=== PATIENT | female | born 1960 | race Caucasian/White ===

== ENCOUNTER 2020-07-26 23:54 | Emergency (ER) | payer OTHER, SELFPAY ==
[2020-07-26 23:59] VITALS: BP 161/108; PULSE 98; RESP 20; TEMP 37; O2SAT 95; BMI 24.0
[2020-07-27 00:55] VITALS: BP 123/92; PULSE 89; RESP 18; O2SAT 99
--- NOTE | 2020-07-27 01:10 | ED.GENADULT ---
HPI - General Adult General Chief complaint: General Medical Stated complaint: vomiting Time Seen by Provider: 07/27/20 01:02 Source: patient Mode of arrival: ambulatory Limitations: no limitations History of Present Illness HPI narrative: patient comes to emergency room complaining of vomiting and a foreign body sensation in her throat. Patient states she was doing well this morning, she ate a sausage, patient does not have teeth, swallow a big chunk of sausage and since then she has been complaining of vomiting and a foreign body sensation in her throat. Patient states anything that she drinks she vomits. Patient also complaining of shortness of breath, albuterol isn't helping. Patient states she has been diagnosed with asthma in the past, she is a smoker but unknown if she has COPD. MD complaint: Foreign body sensation in throat, vomiting Related Data Allergies Allergy/AdvReac Type Severity Reaction Status Date / Time No Known Allergies Allergy Mild NKA Verified 07/27/20 00:44 Review of Systems Review of Systems: Constitutional : No Weight loss, No Fever, No Chills, No Night Sweats, No Fatigue, No Malaise ENT/Mouth : No Hearing loss, No Ear Pain, No Nasal Congestion, No Sinus Pain, No Hoarseness, No sore throat, No Rhinorrhea, No Swallowing Difficulty Eyes: No Eye Pain, No Swelling, No Redness, No Foreign Body, No Discharge, No Vision Changes Cardiovascular : No Chest Pain, No SOB, No Dyspnea on Exertion, No Orthopnea, No Edema, No Palpitations Respiratory : chronic cough, wheezing and shortness of breath Gastrointestinal : complaining of nausea and vomiting, no diarrhea, no abdominal pain, complaining of foreign body sensation in her esophagus Genitourinary : no irregular bleeding, No Dysuria, No Urinary Frequency, No Hematuria, No Urinary Incontinence, No Urgency, No Flank Pain, No Urinary Flow Changes, No Hesitancy Musculoskeletal : No joint pain, No Myalgias, No Joint Swelling Skin : No Skin Lesions, No rash Neuro : No Weakness, No Numbness, No Paresthesias, No Loss of Consciousness, No Dizziness, No Headache Psych : No Anxiety/Panic, No Depression, No SI/HI/AH/VH, No Social Issues, Heme/Lymph: No Bruising, No Bleeding,No Lymphadenopathy Endocrine : No Polyuria, No Polydipsia, No Temperature Intolerance [facility] Past Medical History Medical History (Updated 07/27/20 @ 05:31 by Lexus Mckenzie MD) Asthma HIV (human immunodeficiency virus infection) Social History Social History Alcohol intake: never Smoking Status: Never smoker Smoked in Last 30 Days: No Substance Use Type: Marijuana Substance Use Frequency: Daily Last Used Substance: Hours (ago) Advance Directives: No Physical Exam Vital Signs: Vital Signs: Last Vital Signs Temp 98.6 F 07/26/20 23:59 Pulse 90 07/27/20 01:54 Resp 18 07/27/20 04:00 BP 152/88 H 07/27/20 01:54 Pulse Ox 93 07/27/20 01:42 Body Mass Index 24.0 Appearance: Alert. Oriented X3. in mild distress, crying Eyes: Pupils equal, round and reactive to light. ENT: Pharynx normal. Neck: Normal inspection. Neck supple. No lymph nodes noted. No crepitus CVS: Normal heart rate and rhythm. Pulses normal. Normal S1 and S2 Respiratory: bilateral wheezing, good air movement Abdomen: Soft and nontender. actively vomiting. Skin: Skin warm and dry. Normal skin color. Normal skin turgor. Extremities: No lower extremity edema. No lower extremity edema. No Lacerations. No Rash Neuro: Oriented X 3. No motor deficit. No sensory deficit. Moving all extermities. No slurred speech. Course Course Course Narrative: Patient was given IM glucagon and nitroglycerin sublingual, patient still continued having nausea vomiting and unable to tolerate p.o.. Patient was given 1 dose of Gas-X patient was able to tolerate p.o. both liquid and solid without any vomiting. Patient states she does no longer have any esophageal pain or foreign body sensation. Medical Decision Making Lab Data Result diagrams: 07/27/20 01:41 07/27/20 01:41 Labs: Lab Results 07/27/20 07/27/20 Range/Units 01:41 01:41 WBC 11.7 H (4.8-10.8) X10*3/uL RBC 4.93 (4.20-5.50) X10*6/uL Hgb 14.6 (12.0-16.0) g/dl Hct 44.6 (37-47) % MCV 90.5 (80-98) fL MCH 29.6 (27.0-33.0) pg MCHC 32.7 (31.0-35.0) g/dl RDW 14.0 (11.0-16.0) % Plt Count 310 (160-400) X10*3/uL MPV 11.3 (9.4-12.3) fL Immature Gran % (Auto) 0.3 (0.0-0.4) % Neut % (Auto) 68.2 (45-73) % Lymph % (Auto) 22.0 (20-40) % [place] % (Auto) 9.0 (2-11) % Eos % (Auto) 0.1 (0-4) % Baso % (Auto) 0.4 (0-2) % Lymph # (Auto) 2.6 (1.2-4.9) X10*3/uL [place] # (Auto) 1.1 (0.1-1.2) X10*3/uL Eos # (Auto) 0.0 (0.0-0.4) X10*3/uL Baso # (Auto) 0.1 (0.0-0.2) X10*3/uL Abs Immat Gran (auto) 0.03 (0.00-0.03) X10*3/uL Absolute Neuts (auto) 8.0 (2.0-8.3) X10*3/uL Absolute Nucleated RBC 0.000 (0.0-0.012) X10*3/uL Nucleated RBC % (auto) 0.0 (0.0-0.2) /100WBC Sodium 146 H (135-145) mmol/L Potassium 3.8 (3.3-5.1) mmol/l Chloride 108 (96-108) mmol/L Carbon Dioxide 23 (22-29) mmol/L Anion Gap 19 (12-20) BUN 21 H (9-16) mg/dL Creatinine 1.17 (0.5-1.4) mg/dL Estim Creat Clear Calc 45.2 Estimated GFR 48 Random Glucose 119 H (60-115) mg/dL Calcium 10.3 H (8.4-10.2) mg/dL Total Bilirubin 0.4 (0.0-1.0) mg/dL Direct Bilirubin 0.2 (0.0-0.5) mg/dL AST 25 (5-31) U/L ALT 18 (0-31) U/L Alkaline Phosphatase 105 (39-117) U/L Total Protein 9.5 H (6.5-8.0) g/dL Albumin 5.2 H (3.5-5.0) g/dL Lipase 7 L (8-78) U/L Discharge Plan Discharge Clinical Impression: Esophageal foreign body Qualifiers: Encounter type: initial encounter Qualified Code(s): T18.108A - Unspecified foreign body in esophagus causing other injury, initial encounter Patient Disposition: Home, Self-Care Instructions: Foreign Body Ingestion (ED) Additional Instructions: Please follow-up with your primary care physician tomorrow. If you have any worsening or new symptoms, please return to the emergency room or call 911
[2020-07-27] MEDS: Albuterol Sulfate (0.083%) 2.5 MG/3 ML VIAL.NEB 5 MG INHALE (01:30)
[2020-07-27 01:42] VITALS: BP 152/88; PULSE 90; RESP 18; O2SAT 93
[2020-07-27] MEDS: 0.9 % Sodium Chloride 1,000 ML 999 ML IVCONT (01:44)
[2020-07-27 01:51] LABS: Basophils Absolute Auto 0.1 X10*3/uL (0.0-0.2); Basophils Percent Auto 0.4 % (0-2); Eosinophils Percent Auto 0.1 % (0-4); Hematocrit 44.6 % (37-47); Hemoglobin 14.6 g/dl (12.0-16.0); Imm Gran Abs Auto 0.03 X10*3/uL (0.00-0.03); Imm Gran Pct Auto 0.3 % (0.0-0.4); Lymphocytes Absolute Auto 2.6 X10*3/uL (1.2-4.9); MANUAL DIFF FLAG NO; Mean Corpuscular HGB Conc 32.7 g/dl (31.0-35.0); Mean Corpuscular Hemoglobin 29.6 pg (27.0-33.0); Mean Corpuscular Volume 90.5 fL (80-98); Mean Platelet Volume 11.3 fL (9.4-12.3); Monocytes Absolute Auto 1.1 X10*3/uL (0.1-1.2); Neutrophils Percent Auto 68.2 % (45-73); Platelet Count 310 X10*3/uL (160-400); Red Blood Count 4.93 X10*6/uL (4.20-5.50); White Blood Count 11.7 X10*3/uL (4.8-10.8)
[2020-07-27 01:54] VITALS: BP 152/88; PULSE 90
[2020-07-27] MEDS: Nitroglycerin 0.4 MG TAB.SUBL SUBLINGUAL (01:54)
[2020-07-27] MEDS: methylPREDNISolone Sod Succ/PF 125 MG/2 ML VIAL IVPUSH (01:54)
[2020-07-27] MEDS: ondansetron HCL 4 MG/2 ML VIAL IVPUSH (01:54)
--- NOTE | 2020-07-27 02:16 | CT_ITS ---
EXAMINATION: CT CHEST WITHOUT CONTRAST CLINICAL INFORMATION: Concern for foreign body within the esophagus. COMPARISON: 09/15/2019. TECHNIQUE: Contiguous axial thin section helical images of the chest were performed without contrast. The data set was reformatted in the coronal and sagittal planes and reviewed on an independent workstation. DLP: 184 mGy-cm. FINDINGS: The heart is of normal size. There is no pericardial effusion. There is neither mediastinal, hilar nor axillary lymphadenopathy. There are no chest wall masses. Review of lung windows demonstrates that there are neither pleural effusions nor pneumothoraces. There are no consolidations. There are no pulmonary parenchymal nodules. Images of the upper abdomen demonstrate that the liver is of normal size and attenuation without focal lesions. The patient is status post cholecystectomy. Surgical clips are identified. There are a few calculi within the common duct. Normal adrenal glands are identified. There is a small hiatal hernia. Bone windows: Neither sclerotic nor lytic bone lesions are identified. CT/CT chest wo con IMPRESSION: No foreign bodies demonstrable. No acute airspace disease. Status post cholecystectomy. Residual calcifications noted within the common duct. Automated exposure control (Care Dose) Adjustment of the mA and/or kv according to patient size (this includes techniques or standardized protocols for targeted exams where dose is matched to indication / reason for exam; i.e. extremities or head).
[2020-07-27] MEDS: LORazepam 2 MG/ML VIAL 1 MG IVPUSH (02:25)
[2020-07-27 02:27] LABS: Alanine Aminotransferase 18 U/L (0-31); Albumin Level 5.2 g/dL (3.5-5.0); Alkaline Phosphatase 105 U/L (39-117); Anion Gap 19 (12-20); Aspartate Amino Transferase 25 U/L (5-31); Bilirubin Direct 0.2 mg/dL (0.0-0.5); Bilirubin Total 0.4 mg/dL (0.0-1.0); Blood Urea Nitrogen 21 mg/dL (9-16); Calcium 10.3 mg/dL (8.4-10.2); Carbon Dioxide 23 mmol/L (22-29); Chloride 108 mmol/L (96-108); Creatinine Clr Calc Pharmacy 45.2; Estimated Glomerular Filt Rate 48; Glucose Random 119 mg/dL (60-115); Lipase 7 U/L (8-78); Potassium 3.8 mmol/l (3.3-5.1); Sodium 146 mmol/L (135-145); Total Protein 9.5 g/dL (6.5-8.0)
[2020-07-27 04:00] VITALS: RESP 18
--- NOTE | 2020-07-27 05:02 | PC.NURSE ---
PO CHALLENGE STARTED.
[2020-07-27 05:34] VITALS: BP 125/75; PULSE 79; RESP 18; TEMP 36.9; O2SAT 94
== END 2020-07-27 05:35 | disposition home or self-care (01) ==
PROVIDERS: Emergency Provider Emergency Medicine
DX: R13.10 Dysphagia, unspecified (principal); R09.89 Other specified symptoms and signs involving the circulatory and respiratory systems; F12.90 Cannabis use, unspecified, uncomplicated
CPT/HCPCS: 36415; 71250; 80048; 80076; 83690; 85025; 94640; 96361; 96372; 96374; 96375; 99284; J1610; J2060; J2405; J2930

== ENCOUNTER 2020-07-28 12:38 | Inpatient (IN) | payer OTHER, SELFPAY ==
[2020-07-28] VITALS (7 sets, daily range): BP systolic 97–117; BP diastolic 55–73; PULSE 77–116; RESP 16–22; TEMP 36.1–36.9; O2SAT 94–100; BMI 24.0
--- NOTE | 2020-07-28 12:58 | XR_ITS ---
EXAMINATION: XR CHEST CLINICAL INFORMATION: Dyspnea COMPARISON: Chest CT July 2020 chest x-ray August 2019. TECHNIQUE: Frontal view of the chest was obtained. FINDINGS: No acute significant abnormality is noted involving the heart, lungs, mediastinum, bony thorax or soft tissues. Incidental note is made of arthrosis of glenohumeral joint with subchondral cystic change along the inferior glenoid XR/XR chest 1V IMPRESSION: No acute abnormality. 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
--- NOTE | 2020-07-28 13:00 | ED_ITS ---
HPI - Asthma General Chief Complaint: Upper Respiratory Symptoms Stated Complaint: SOB,RECENT -COVID,HX OF ASTHMA Time Seen by Provider: 07/28/20 12:57 Source: EMS Mode of arrival: EMS Limitations: no limitations History of Present Illness MD complaint: asthma attack , shortness of breath and wheezing Onset (ago): day(s) (1) Severity: moderate Context: smoke exposure and other (did use cocaine) Associated symptoms: dry cough Asthma History: childhood onset and adult onset Treatments Prior to Arrival: inhaled bronchodilator and other Related Data Allergies Allergy/AdvReac Type Severity Reaction Status Date / Time No Known Allergies Allergy Mild NKA Verified 07/27/20 00:44 Review of Systems Review of Systems: Constitutional : No Fever, No Chills ENT/Mouth : No sore throat, No Rhinorrhea, No Swallowing Difficulty Eyes: No Eye Pain, No Swelling, No Redness Cardiovascular : No Chest Pain, positive SOB, No Orthopnea, no Edema Respiratory : pos Cough, No Sputum, No Wheezing, positive dyspnea Gastrointestinal : No Nausea, No Vomiting, No Diarrhea, No abdominal Pain, No Hematochezia, No Melena Genitourinary : No Dysuria, No Urinary Frequency, No Hematuria Musculoskeletal : No joint pain, No Myalgias Skin : No Skin Lesions, No rash Neuro : No Weakness, No Numbness, No Dizziness, No Headache Psych : No Anxiety/Panic, No Depression Heme/Lymph: No Bruising, No Lymphadenopathy Endocrine : No Polyuria, No Polydipsia All other systems reviewed and are negative PMFSH Past Medical History Attestation statement: The following information was validated with the patient. Medical History Asthma HIV (human immunodeficiency virus infection) Social History Social History Alcohol intake: never Smoking Status: Never smoker Substance Use Type: Crack/Cocaine and Marijuana Last Used Substance: Days (ago) Advance Directives: No Advance Directives Information Provided: Yes Physical Exam Vital Signs: Vital Signs: Last Vital Signs Temp 98.5 F 07/28/20 12:42 Pulse 77 07/28/20 12:42 Resp 19 07/28/20 12:42 Pulse Ox 97 07/28/20 13:12 Body Mass Index 24.0 Appearance: Alert. Oriented X3. mild acute distress. Eyes: Pupils equal, round and reactive to light. ENT: Pharynx normal. Neck: Normal inspection. Neck supple. CVS: Normal heart rate and rhythm. Pulses normal. Respiratory: mild respiratory distress - tachypnea/retractions. Breath sounds diffuse end exp wheezes Abdomen: Soft and nontender. Skin: Skin warm and dry. Normal skin color. Normal skin turgor. Extremities: No lower extremity edema. No calf ttp Neuro: Oriented X 3. No motor deficit. No sensory deficit. Course Course Course Narrative: still tight and wheezing, repeat neb ordered at this time will admit for further care MDM - Asthma MDM Narrative Medical decision making narrative: 60 yo female with asthma does smoke THC and just used cocaine here for asthma and wheezing - no fevers, just had negative COVID test seen for esophageal FB - that has resolved at this time will give hour long 10mg neb, IV magnesium, IV steroids, labs and CXR - dispo per results and findings. Lab Data Result diagrams: 07/28/20 13:03 07/28/20 13:03 Labs: Lab Results 07/28/20 07/28/20 07/28/20 Range/Units 13:03 13:03 13:03 WBC 7.9 (4.8-10.8) X10*3/uL RBC 4.16 L (4.20-5.50) X10*6/uL Hgb 12.1 (12.0-16.0) g/dl Hct 37.6 (37-47) % MCV 90.4 (80-98) fL MCH 29.1 (27.0-33.0) pg MCHC 32.2 (31.0-35.0) g/dl RDW 14.0 (11.0-16.0) % Plt Count 234 (160-400) X10*3/uL MPV 11.2 (9.4-12.3) fL Immature Gran % (Auto) 0.1 (0.0-0.4) % Neut % (Auto) 50.4 (45-73) % Lymph % (Auto) 40.8 H (20-40) % [place] % (Auto) 8.0 (2-11) % Eos % (Auto) 0.3 (0-4) % Baso % (Auto) 0.4 (0-2) % Lymph # (Auto) 3.2 (1.2-4.9) X10*3/uL [place] # (Auto) 0.6 (0.1-1.2) X10*3/uL Eos # (Auto) 0.0 (0.0-0.4) X10*3/uL Baso # (Auto) 0.0 (0.0-0.2) X10*3/uL Abs Immat Gran (auto) 0.01 (0.00-0.03) X10*3/uL Absolute Neuts (auto) 4.0 (2.0-8.3) X10*3/uL Absolute Nucleated RBC 0.000 (0.0-0.012) X10*3/uL Nucleated RBC % (auto) 0.0 (0.0-0.2) /100WBC Hold Blue Top SEE NOTE Sodium 144 (135-145) mmol/L Potassium 3.2 L (3.3-5.1) mmol/l Chloride 107 (96-108) mmol/L Carbon Dioxide 28 (22-29) mmol/L Anion Gap 12 (12-20) BUN 16 (9-16) mg/dL Creatinine 0.88 (0.5-1.4) mg/dL Estim Creat Clear Calc 60.1 Estimated GFR > 60 Random Glucose 99 (60-115) mg/dL Calcium 9.2 D (8.4-10.2) mg/dL Discharge Plan Discharge Clinical Impression: Asthma, Cocaine abuse Patient Disposition: Admitted As Inpatient
[2020-07-28] MEDS: methylPREDNISolone Sod Succ/PF 125 MG/2 ML VIAL 60 MG IVPUSH (13:05)
[2020-07-28] MEDS: Magnesium Sulfate/H2O 2 GM/50 ML PIGGYBACK IV (13:05)
[2020-07-28] MEDS: Albuterol Sulfate (0.083%) 2.5 MG/3 ML VIAL.NEB 10 MG INHALE (13:08)
[2020-07-28 13:13] LABS: MANUAL DIFF FLAG NO
[2020-07-28 13:19] LABS: Basophils Percent Auto 0.4 % (0-2); Eosinophils Percent Auto 0.3 % (0-4); Hematocrit 37.6 % (37-47); Hemoglobin 12.1 g/dl (12.0-16.0); Imm Gran Abs Auto 0.01 X10*3/uL (0.00-0.03); Imm Gran Pct Auto 0.1 % (0.0-0.4); Lymphocytes Absolute Auto 3.2 X10*3/uL (1.2-4.9); Lymphocytes Percent Auto 40.8 % (20-40); Mean Corpuscular HGB Conc 32.2 g/dl (31.0-35.0); Mean Corpuscular Hemoglobin 29.1 pg (27.0-33.0); Mean Corpuscular Volume 90.4 fL (80-98); Mean Platelet Volume 11.2 fL (9.4-12.3); Monocytes Absolute Auto 0.6 X10*3/uL (0.1-1.2); Neutrophils Percent Auto 50.4 % (45-73); Platelet Count 234 X10*3/uL (160-400); Red Blood Count 4.16 X10*6/uL (4.20-5.50); White Blood Count 7.9 X10*3/uL (4.8-10.8)
[2020-07-28 13:32] LABS: Anion Gap 12 (12-20); Blood Urea Nitrogen 16 mg/dL (9-16); Calcium 9.2 mg/dL (8.4-10.2); Carbon Dioxide 28 mmol/L (22-29); Chloride 107 mmol/L (96-108); Creatinine Clr Calc Pharmacy 60.1; Estimated Glomerular Filt Rate > 60; Glucose Random 99 mg/dL (60-115); Potassium 3.2 mmol/l (3.3-5.1); Sodium 144 mmol/L (135-145)
[2020-07-28] MEDS: Potassium Chloride ER 20 MEQ TAB.ER.PRT 40 MEQ PO (14:15)
[2020-07-28] MEDS: Albuterol Sulfate (0.083%) 2.5 MG/3 ML VIAL.NEB 5 MG INHALE (15:07)
[2020-07-28 15:27] LABS: Influenza A PCR NEGATIVE (Negative); Influenza B PCR NEGATIVE (Negative); Resp Syncy Virus RNA Qual PCR NEGATIVE (Negative); SARS COV2 PCR INHOUSE NEGATIVE (Negative)
--- NOTE | 2020-07-28 16:38 | PC.NURSE ---
VSS. Pt's lungs coarse throughout but she appears in NAD. She is resting in bed quietly with eyes closed. Awaiting bed assignment for admission.
--- NOTE | 2020-07-28 17:00 | PM.EVENT ---
Event Note Date of Service: 07/28/20 Event Note: Addendum to H and P by Mid-level Provider I saw and examined the patient and participated in the chi portion of the E/M service. I agree with the history and exam as documented by [employer] SAL[employer] EXECUTIVE. Patient has acute exacerbation of asthma. Exam: delfina wheezes. Will admit for treatment with bronchodilators by Nebs, IV steroidand close monitoring. Covid is negative. . Otherwise, I agree with assessment and plan as outlined in the H and P.
--- NOTE | 2020-07-28 18:47 | PC.NURSE ---
Pt remains coarse and wheezy but breathing is unlabored and even. Sats 98% on room air. Eating dinner. Awaiting bed assignment. Plan verbalized tp patient.
[2020-07-28] MEDS: Benzonatate 100 MG CAPSULE PO (19:44)
[2020-07-28] MEDS: Albuterol/Iprat 2.5/0.5MG 3 ML AMPUL.NEB INHALE (21:51)
[2020-07-28] MEDS: 0.9 % Sodium Chloride Flush 3 ML SYRINGE IVFLUSH ×2 (21:59→22:00)
[2020-07-28] MEDS: Enoxaparin Sodium 40 MG/0.4 ML SYRINGE SUBCUT (21:59)
[2020-07-28] MEDS: guaiFENesin DM 100/10/5 ML 5 ML SYRUP PO (22:23)
[2020-07-28] MEDS: Mirtazapine 15 MG TABLET PO (22:43)
[2020-07-28] MEDS: traZODone HCL 50 MG TABLET PO (22:43)
[2020-07-29 03:40] VITALS: BP 138/68; PULSE 70; RESP 19; TEMP 36.4; O2SAT 96
[2020-07-29] MEDS: guaiFENesin DM 100/10/5 ML 5 ML SYRUP PO (05:41)
[2020-07-29 06:54] LABS: MANUAL DIFF FLAG NO
[2020-07-29 07:01] LABS: Basophils Percent Auto 0.1 % (0-2); Hematocrit 37.7 % (37-47); Imm Gran Abs Auto 0.04 X10*3/uL (0.00-0.03); Imm Gran Pct Auto 0.4 % (0.0-0.4); Lymphocytes Percent Auto 10.9 % (20-40); Mean Corpuscular HGB Conc 31.8 g/dl (31.0-35.0); Mean Corpuscular Hemoglobin 29.1 pg (27.0-33.0); Mean Corpuscular Volume 91.3 fL (80-98); Mean Platelet Volume 11.3 fL (9.4-12.3); Monocytes Absolute Auto 0.4 X10*3/uL (0.1-1.2); Monocytes Percent Auto 4.3 % (2-11); Neutrophils Absolute Auto 7.6 X10*3/uL (2.0-8.3); Neutrophils Percent Auto 84.3 % (45-73); Platelet Count 249 X10*3/uL (160-400); Red Blood Count 4.13 X10*6/uL (4.20-5.50); Red Cell Distribution Width 14.2 % (11.0-16.0)
[2020-07-29 07:19] VITALS: BP 112/70; PULSE 71; RESP 16; TEMP 36.1; O2SAT 96
[2020-07-29 07:32] LABS: Anion Gap 15 (12-20); Blood Urea Nitrogen 14 mg/dL (9-16); Calcium 9.1 mg/dL (8.4-10.2); Carbon Dioxide 22 mmol/L (22-29); Chloride 109 mmol/L (96-108); Creatinine Clr Calc Pharmacy 64.5; Estimated Glomerular Filt Rate > 60; Glucose Random 148 mg/dL (60-115); Sodium 142 mmol/L (135-145)
[2020-07-29] MEDS: Albuterol/Iprat 2.5/0.5MG 3 ML AMPUL.NEB INHALE ×2 (07:51→11:49)
--- NOTE | 2020-07-29 09:02 | PM.DS ---
DS: Providers Provider Date of admission: 07/28/20 15:21 Primary care physician: Unknown Physician DS: Medications Discharge Medications Home Medications: Home Medications Medication Instructions Recorded Confirmed [id number] ala 1 tab PO DAILY 07/28/20 07/28/20 [Biktarvy] ergocalciferol (vitamin D2) 1,250 mcg PO QWEEK 07/28/20 07/28/20 [Vitamin D2] mirtazapine 15 mg PO BEDTIME 07/28/20 07/28/20 sertraline 150 mg PO DAILY 07/28/20 07/28/20 trazodone 50 mg PO BEDTIME 07/28/20 07/28/20 DS: Summary Hospital Course Hospital Course: 60/F with asthma and HIV, active cocaine user who presented to the ED with shortness of breath, wheezing in the setting of cocain use. CXR no PNA. covid negative. Patient was admitted for asthma exacerbation and treated with IV steroid, bronchodilators by Neb and is now doing better. Advised against using coaine and smoking. Will discharge with Albuterol MDI and prednisone for 5 days of steroid. Prilosec for heart burn. And to continue HIV meds Time Spent with Patient Time attestation: Total time spent providing and/or coordinating discharge services: Physical Exam Vital Signs: Vital Signs: Last Vital Signs Temp 97.0 F 07/29/20 07:19 Pulse 71 07/29/20 07:19 Resp 16 07/29/20 07:19 BP 112/70 07/29/20 07:19 Pulse Ox 96 07/29/20 07:19 Body Mass Index 24.0 Constitutional Awake and Alert, No apparent distress Neck Supple, No lymphadenopathy Cardiovascular RRR, No M/R/G, S1 S2, No S3 S4, No pedal edema Respiratory Lungs clear, No respiratory distress Gastrointestinal Non tender, Non-distended Skin No rash Neurological Alert & oriented x3 Psychological Appropriate affect DS: Data Data Completed and Pending Labs on day of discharge: 07/28/20 12:57 Albuterol Sulfate (0.083%) [Ventolin (0.083%)] 10 mg INHALE ONCE ONE Magnesium Sulfate/H2O 2 gm in 50 ml IV ONCE methylPREDNISolone Sod Succ/PF [SOLU-MedroL] 60 mg IVPUSH ONCE ONE 07/28/20 12:58 XR chest 1V Stat 07/28/20 13:03 Basic Metabolic Panel Stat Complete Blood Count Auto Diff Stat Hold Lt Blue - Possible Coag Stat 07/28/20 13:46 Potassium Chloride ER [Klor-con] 40 meq PO ONCE ONE 07/28/20 14:33 Albuterol Sulfate (0.083%) [Ventolin (0.083%)] 5 mg INHALE ONCE ONE 07/28/20 14:40 SARS-CoV2/FLU/RSV Stat 07/28/20 15:17 Transfer Order Routine 07/28/20 19:29 Benzonatate [Tessalon] 100 mg PO ONCE ONE 07/29/20 06:30 Basic Metabolic Panel DAILY@0600 Complete Blood Count Auto Diff DAILY@0600 Laboratory Last Values WBC 9.0 X10*3/uL (4.8-10.8) 07/29/20 06:30 RBC 4.13 X10*6/uL (4.20-5.50) L 07/29/20 06:30 Hgb 12.0 g/dl (12.0-16.0) 07/29/20 06:30 Hct 37.7 % (37-47) 07/29/20 06:30 MCV 91.3 fL (80-98) 07/29/20 06:30 MCH 29.1 pg (27.0-33.0) 07/29/20 06:30 MCHC 31.8 g/dl (31.0-35.0) 07/29/20 06:30 RDW 14.2 % (11.0-16.0) 07/29/20 06:30 Plt Count 249 X10*3/uL (160-400) 07/29/20 06:30 MPV 11.3 fL (9.4-12.3) 07/29/20 06:30 Immature Gran % (Auto) 0.4 % (0.0-0.4) 07/29/20 06:30 Neut % (Auto) 84.3 % (45-73) H 07/29/20 06:30 Lymph % (Auto) 10.9 % (20-40) L 07/29/20 06:30 [place] % (Auto) 4.3 % (2-11) 07/29/20 06:30 Eos % (Auto) 0.0 % (0-4) 07/29/20 06:30 Baso % (Auto) 0.1 % (0-2) 07/29/20 06:30 Lymph # (Auto) 1.0 X10*3/uL (1.2-4.9) L 07/29/20 06:30 [place] # (Auto) 0.4 X10*3/uL (0.1-1.2) 07/29/20 06:30 Eos # (Auto) 0.0 X10*3/uL (0.0-0.4) 07/29/20 06:30 Baso # (Auto) 0.0 X10*3/uL (0.0-0.2) 07/29/20 06:30 Abs Immat Gran (auto) 0.04 X10*3/uL (0.00-0.03) H 07/29/20 06:30 Absolute Neuts (auto) 7.6 X10*3/uL (2.0-8.3) 07/29/20 06:30 Absolute Nucleated RBC 0.000 X10*3/uL (0.0-0.012) 07/29/20 06:30 Nucleated RBC % (auto) 0.0 /100WBC (0.0-0.2) 07/29/20 06:30 Hold Blue Top SEE NOTE 07/28/20 13:03 Sodium 142 mmol/L (135-145) 07/29/20 06:30 Potassium 4.0 mmol/l (3.3-5.1) D 07/29/20 06:30 Chloride 109 mmol/L (96-108) H 07/29/20 06:30 Carbon Dioxide 22 mmol/L (22-29) 07/29/20 06:30 Anion Gap 15 (12-20) 07/29/20 06:30 BUN 14 mg/dL (9-16) 07/29/20 06:30 Creatinine 0.82 mg/dL (0.5-1.4) 07/29/20 06:30 Estim Creat Clear Calc 64.5 07/29/20 06:30 Estimated GFR > 60 07/29/20 06:30 Random Glucose 148 mg/dL (60-115) H D 07/29/20 06:30 Calcium 9.1 mg/dL (8.4-10.2) 07/29/20 06:30 Coronavirus (PCR) NEGATIVE (Negative) 07/28/20 14:40 Influenza Type A (PCR) NEGATIVE (Negative) 07/28/20 14:40 Influenza Type B (PCR) NEGATIVE (Negative) 07/28/20 14:40 RSV RNA Qual (PCR) NEGATIVE (Negative) 07/28/20 14:40 Discharge Plan Discharge Anticipated Discharge Date/Time: 07/29/20 09:08 Patient Disposition: Home, Self-Care Referrals: Physician,Unknown [Primary Care Provider] - Discharge Medications: New prednisone 20 mg tablet 40 mg PO BID 5 Days Qty: 20 RF: 0 albuterol sulfate 90 mcg/actuation HFA aerosol inhaler 2 inh inhalation Q6-8H PRN (Reason: shortness of breath or wheezing) Qty: 18 RF: 0 omeprazole magnesium [Prilosec OTC] 20 mg tablet,delayed release (DR/EC) 20 mg PO DAILY Qty: 30 RF: 0 Continued Biktarvy 50-200-25 mg Tablet 1 tab PO DAILY RF: 0 trazodone 50 mg Tablet 50 mg PO BEDTIME RF: 0 sertraline 100 mg Tablet 150 mg PO DAILY RF: 0 mirtazapine 15 mg Tablet 15 mg PO BEDTIME RF: 0 ergocalciferol (vitamin D2) [Vitamin D2] 1,250 mcg (50,000 unit) Capsule 1,250 mcg PO QWEEK RF: 0 Discharge Orders: Discharge Order (Routine); Ordered 07/29/20 Ordered By: Vic Tripathi Activity on Discharge: As tolerated Discharge Date/Time: 07/29/20 13:39 Visit Report Forms: Patient Portal Discharge page Care Plan Goals: prevent rehospitalization for asthma Health Concerns: ongoing substance abuse Plan of Treatment: take prednisone and inhaler as ordered
[2020-07-29] MEDS: 0.9 % Sodium Chloride Flush 3 ML SYRINGE IVFLUSH (09:31)
[2020-07-29] MEDS: Sertraline HCL 100 MG TABLET 150 MG PO (09:32)
[2020-07-29] MEDS: Omeprazole 20 MG CAPSULE.DR PO (09:36)
[2020-07-29] MEDS: Ergocalciferol (Vitamin D2) 1,250 MCG CAPSULE 1250 MCG PO (09:36)
--- NOTE | 2020-07-29 09:57 | MHC.CM.PN ---
nurse case management electronic medical record reviewed along with case discussed with staff nurse , met with patient she reported to me her new address [address] [place] [address] (this is a house in which she rents a room out of ) pharmacy [facility] , pcp hector menendez at [facility], she reported that she is active, independent in all adls and mobility, she reported that she has had hiv for about 26 years she denies any history of etoh abuse , she admitts to snort cocaine and smoke marijuana she has a nebulizer at home but does not rember the company name , she has no vna services and denies having financial difficulties in securing any of her medications. discharge plan home no services offered a cares team referral and she declined pcp instructed her to clal for post hospitla discharge for follow up she will be going home on on a inhaler . prilosec and po prednisome transf]=[facility] pm todaya review of the discharge plan with patient
--- NOTE | 2020-08-01 15:38 | HP_ITS ---
DATE OF SERVICE: 07/28/2020 CHIEF COMPLAINT: Shortness of breath. HISTORY OF PRESENT ILLNESS: A 60-year-old woman, presenting with complaints of worsening shortness of breath due to her asthma. She reports that she had been using her inhalers with no effect. Her symptoms started yesterday. She reports that she used cocaine yesterday and seems to have these asthma attacks when she uses. She denies any recent fever, chills, nausea, vomiting, or diarrhea. She reports a dry cough with some foamy sputum. She was recently in the ER on July 27 and had a foreign body in her esophagus removed. Chest x-ray in the ER is negative for consolidation or effusion. Her vital signs are stable. She is not noted to be hypoxic, however, she is quite wheezy. Potassium of 3.2. All other labs within acceptable limits. The patient will be admitted for further management and treatment of acute asthma exacerbation. PAST MEDICAL HISTORY: 1. Asthma. 2. Substance abuse. 3. HIV. 4. Anxiety. 5. Depression. FAMILY HISTORY: Mother with hypertension, hepatitis C. SOCIAL HISTORY: Lives alone. Uses cocaine. Denies tobacco or illicit drug use. ALLERGIES: NO KNOWN ALLERGIES. MEDICATIONS: Medication reconciliation is pending. LABORATORY DATA: Sodium 144, potassium 3.2, chloride is 107, BUN is 16, creatinine 0.88. White blood cell count 7.9, hemoglobin 12.1, hematocrit 37.6, platelets 234. REVIEW OF SYSTEMS: CONSTITUTIONAL: Denies any recent fever, chills, decrease in appetite. RESPIRATORY: See HPI. CARDIOVASCULAR: Denies any chest pain, orthopnea, PND, or edema. GASTROINTESTINAL: Denies any dysphagia, abdominal pain, nausea, vomiting, or diarrhea. GENITOURINARY: Denies any dysuria, frequency, hematuria. MUSCULOSKELETAL: Denies joint pain or swelling. NEUROPSYCH: Denies any weakness or seizures. All other systems are reviewed and are negative. PHYSICAL EXAMINATION: CONSTITUTIONAL: Resting in bed. No acute distress. VITAL SIGNS: 106, 16, 97/55, 99% on room air. SKIN: Intact without rash or open sores. HEENT: Head is normocephalic, atraumatic. Eyes, pupils are PERRLA. Sclerae anicteric. Mouth and throat: Mucous membranes are intact and moist. NECK: Supple. No lymphadenopathy. No JVD noted. CHEST: Expiratory wheezes throughout. HEART: Regular rate and rhythm. Clear S1, S2. No murmurs or gallops. ABDOMEN: Positive bowel sounds. Soft. Nontender. No hepatomegaly or splenomegaly noted. NEURO: The patient is alert and oriented x3. Cranial nerves II through 12 are grossly intact without focal deficits. ASSESSMENT AND PLAN: A 60-year-old woman, who is being admitted with acute asthma exacerbation without hypoxia. 1. Asthma exacerbation. Solu-Medrol, DuoNeb. Continue supplemental oxygen as needed. No antibiotics at this time. 2. Human immunodeficiency virus. The patient reports recent CD4 count within normal limits. We will continue home medications. 3. Anxiety and depression. Continue home regimen. 4. Hypokalemia. Replete in the ER. Follow BMP. 5. Deep vein thrombosis prophylaxis with Lovenox. 6. Case discussed Dr. Tripathi. 7. Full code. JITENDRA Casiano MD JR/MEGAN / [id number]
== END 2020-07-29 13:39 | disposition home or self-care (01) | DRG 141 ==
LOC: HO.ED 14:36 → HO.S3 19:48
PROVIDERS: Nurse Practitioner Acute Care; Admitting Provider Internal Medicine; Emergency Provider Emergency Medicine; Visit Provider Internal Medicine
DX: J45.901 Unspecified asthma with (acute) exacerbation (principal); K21.9 Gastro-esophageal reflux disease without esophagitis; Z20.828 Contact with and (suspected) exposure to other viral communicable diseases; Z21 Asymptomatic human immunodeficiency virus [HIV] infection status; Z79.899 Other long term (current) drug therapy
CPT/HCPCS: 0241U; 36415; 71045; 80048; 85025; 94640; 94644; 96365; 96375; 99284; 99285; J1650; J2920; J2930; J3475

== ENCOUNTER 2021-04-27 18:45 | Emergency (ER) | payer OTHER, SELFPAY ==
--- NOTE | ~2021-04-27 | XR_ITS ---
EXAMINATION: XR ELBOW, LEFT CLINICAL INFORMATION: Fall. Medial elbow pain. COMPARISON: None TECHNIQUE: AP, lateral, and oblique views of the left elbow. FINDINGS: The bones and soft tissues are normal. No fracture or joint effusion. Alignment is anatomic. Joint spaces are maintained. XR/XR elbow LT min 3V IMPRESSION: Unremarkable examination.
--- NOTE | ~2021-04-27 | XR_ITS ---
EXAMINATION: XR HAND AND WRIST, LEFT CLINICAL INFORMATION: Pain following injury. COMPARISON: None TECHNIQUE: AP, oblique, and lateral views of the left hand and wrist. FINDINGS: No acute fracture or dislocation. Normal carpal alignment. No joint space narrowing or marginal osteophytes. No osseous erosion. No abnormal soft tissue calcification. XR/XR hand wrist LT IMPRESSION: Unremarkable examination.
[2021-04-27 19:06] VITALS: BP 100/67; PULSE 91; RESP 18; TEMP 36.7; O2SAT 97; BMI 25.6
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
== END 2021-04-27 22:21 | disposition home or self-care (01) ==
PROVIDERS: Emergency Provider Student in an Organized Health Care Education/Training Program; PCP Internal Medicine Infectious Disease
DX: S63.602A Unspecified sprain of left thumb, initial encounter (principal); S50.02XA Contusion of left elbow, initial encounter; W50.0XXA Accidental hit or strike by another person, initial encounter; B20 Human immunodeficiency virus [HIV] disease; Y93.9 Activity, unspecified; Y92.9 Unspecified place or not applicable; Y99.9 Unspecified external cause status
CPT/HCPCS: 73080; 73110; 73130; 99283

== ENCOUNTER 2021-05-11 14:07 | Emergency (ER) | payer OTHER, SELFPAY ==
--- NOTE | ~2021-05-11 | CT_ITS ---
EXAMINATION: CT ABDOMEN AND PELVIS WITHOUT CONTRAST CLINICAL INFORMATION: Left-sided flank pain with left lower quadrant tenderness. COMPARISON: November 11, 2006 TECHNIQUE: Multidetector volumetric imaging was performed from the superior aspect of the liver through the pubic symphysis. Sagittal and coronal reformatted images were obtained on the technologist's workstation. This CT examination was performed using dose optimization techniques as appropriate, variously including the following: *Automated exposure control *Adjustment of mA and/or kV according to patient size (this includes techniques or standardized protocols for targeted exams where dose is matched to indication/reason for exam; i.e. extremities or head) *Use of iterative reconstruction technique DLP: 475 mGy-cm FINDINGS: LUNG BASES: There are some scattered cysts present within the lungs. No confluent parenchymal disease. No pleural or pericardial effusion. LIVER, GALLBLADDER, AND BILIARY TREE: The liver is normal in size, shape, and attenuation. No focal hepatic lesion or biliary ductal dilatation is present. Status post cholecystectomy. PANCREAS: Unremarkable. SPLEEN: Unremarkable. ADRENAL GLANDS: Unremarkable. KIDNEYS AND URETERS: The kidneys are normal in size, shape, and attenuation. No hydronephrosis, hydroureter, or calculi seen. No perinephric stranding. BLADDER: Unremarkable. GASTROINTESTINAL TRACT: No dilated loops of large or small bowel. No free air or free fluid. No pericolonic inflammatory change. Appendix appears unremarkable. ABDOMINAL WALL: No significant hernia is appreciated. LYMPH NODES: No lymphadenopathy appreciated. VASCULAR: Unremarkable. PELVIC VISCERA: Unremarkable. OSSEOUS STRUCTURES: No destructive bony lesions identified. CT/CT abdomen pelvis wo con IMPRESSION: No evidence of obstructive uropathy. No evidence of colitis. No specific findings to explain patient's symptoms.
[2021-05-11 14:13] VITALS: BP 134/85; PULSE 67; RESP 18; TEMP 37.2; O2SAT 96; BMI 23.0
--- NOTE | 2021-05-11 14:35 | ED.ABDPAIN ---
HPI - Abdominal Pain General Chief Complaint: Abdominal Pain Stated Complaint: flank pain Time Seen by Provider: 05/11/21 14:24 Source: patient and EMS Mode of arrival: EMS Limitations: no limitations History of Present Illness HPI narrative: 60 y/o female with history of HIV on HAART, anxiety/depression, substance abuse, asthma who presents to the ER via EMS with reports of intermittent left sided flank pain that started yesterday and now radiated to her LLQ today. She is nauseated but has not vomited. She has no fever, chills, diarrhea or constipation. She reports bubbles in her urine but no blood and no burning on urination. She reports compliance with HAART and stated her CD4 counts and viral loads are good. MD elicited complaint: abdominal pain and flank pain Pertinent past history: HIV Onset (ago): day(s) (1) Pain Consistency: constant Location: L flank Severity: severe Quality: sharp Radiation: LLQ Exacerbating factors: nothing Relieving factors: nothing Associated symptoms: nausea Related Data Home Medications Medication Instructions Recorded Confirmed bictegravir 50 mg-emtricitabine 1 tab PO DAILY 07/28/20 07/28/20 200 mg-tenofovir alafenam 25 mg tablet (Biktarvy) ergocalciferol (vitamin D2) 1,250 1,250 mcg PO QWEEK 07/28/20 07/28/20 mcg (50,000 unit) capsule (Vitamin D2) mirtazapine 15 mg tablet 15 mg PO BEDTIME 07/28/20 07/28/20 sertraline 100 mg tablet 150 mg PO DAILY 07/28/20 07/28/20 trazodone 50 mg tablet 50 mg PO BEDTIME 07/28/20 07/28/20 Previous Rx's Medication Instructions Recorded albuterol sulfate 90 mcg/actuation 2 inh INHALATION Q6-8H PRN #18 g 07/29/20 aerosol inhaler omeprazole magnesium 20 mg 20 mg PO DAILY #30 tab 07/29/20 tablet,delayed release (Prilosec OTC) prednisone 20 mg tablet 40 mg PO BID 5 Days #20 tab 07/29/20 naproxen 500 mg tablet 500 mg PO BID PRN #20 tab 05/11/21 Allergies Allergy/AdvReac Type Severity Reaction Status Date / Time No Known Allergies Allergy Mild NKA Verified 07/27/20 00:44 Review of Systems Constitutional: Denies chills, Denies fever(s) and Denies headache(s) Eyes: Reports no additional eye complaints Reports Normal hearing present, Denies headache(s) and Denies sore throat Cardiovascular: Denies chest pain and Denies dyspnea Respiratory: Denies cough and Denies dyspnea Gastrointestinal: Reports abdominal pain, Denies bloating, Denies GI cramping, Denies diarrhea, Reports nausea and Denies vomiting Genitourinary: Denies abnormal vaginal bleeding, Denies hematuria, Denies dysuria, Reports flank pain and Denies vaginal discharge Musculoskeletal: Reports back pain Skin/Breast: Denies rash Reports Normal hearing present and Denies headache(s) Psychiatric: Reports anxiety Hematologic/Lymphatic: Denies easy bleeding and Denies easy bruising Physical Exam Vital Signs: Vital Signs: Last Vital Signs Temp 98.9 F 05/11/21 14:13 Pulse 67 05/11/21 14:13 Resp 18 05/11/21 14:13 BP 134/85 05/11/21 14:13 Pulse Ox 96 05/11/21 14:13 Body Mass Index 23.0 Const: General: well developed, alert, awake and acute distress (in pain) mild Nutritional Appearance: average body habitus Orientation/consciousness: patient oriented x3 Limitations: no limitations HENMT: Head: Yes normal to inspection Ears: hearing grossly normal bilaterally and external ears normal General nose exam: Normal external nose present and Normal nares present Face and sinus: Yes normal facial exam and Yes face symmetric Mouth: Normal oral and palatal mucosa present, lip normal and tongue normal Teeth and gingiva: dentition normal and gingiva normal Throat: Yes posterior oropharynx normal, Yes tonsils normal and Yes uvula midline Eyes: General: appearance normal, both eyes and all related structures Neck: Neck: Yes normal visual inspection and Yes no lymphadenopathy Chest: Chest palpation & inspection: normal inspection of the chest Resp: Effort & Inspection: normal respiratory effort and able to speak in complete sentences Auscultation: clear to auscultation bilaterally Cardio: Rate: regular rate Rhythm: regular rhythm Heart sounds: S1 normal heart sound present and S2 normal heart sound present GI: Inspection: Yes normal to inspection Palpation (GI): Soft to palpation, Tenderness to palpation present (GI) in the LLQ, Guarding due to palpation present (GI) in the LLQ and No Rebound tenderness present Percussion: Yes normal to percussion Auscultation: normal bowel sounds Rectal Exam - Female: deferred : General: Yes CVA tenderness (left side) Back/Spine/Pelvis: Back: CVA tenderness (left side) and back tenderness Skin: General skin exam: no rashes or lesions noted Neuro: General: patient oriented x3 Cranial nerves: Yes Normal hearing present Extrem: General: Yes normal to inspection and Yes no pedal edema Psych: Appearance: grossly normal and well kempt Mental Status: mental status grossly normal Speech and movement: Normal speech and movement present Affect: Anxious affect present Attitude: cooperative Course Course Course Narrative: 60 y/o female presenting with intermittent left flank pain radiating to LLQ which is now constant. +tenderness on exam. VS are normal. Will get labs, UA and CT scan for further evaluation. Reevaluation(s) Reevaluation #1: Workup is unremarkable. Her pain is somewhat improved with toradol. She has inguinal tenderness consistent with muscular pain. Will treat with NSAID and supportive care. Encouraged to f/u with her PCP. MDM - Abdominal Pain Lab Data Result diagrams: 05/11/21 14:53 05/11/21 14:53 Labs: Lab Results 05/11/21 05/11/21 05/11/21 Range/Units 14:53 14:53 14:53 WBC 7.1 (4.8-10.8) X10*3/uL RBC 4.43 (4.20-5.50) X10*6/uL Hgb 13.0 (12.0-16.0) g/dl Hct 39.8 (37-47) % MCV 89.8 (80-98) fL MCH 29.3 (27.0-33.0) pg MCHC 32.7 (31.0-35.0) g/dl RDW 13.4 (11.0-16.0) % Plt Count 271 (160-400) X10*3/uL MPV 11.0 (9.4-12.3) fL Immature Gran % (Auto) 0.3 (0.0-0.4) % Neut % (Auto) 48.8 (45-73) % Lymph % (Auto) 40.6 H (20-40) % [place] % (Auto) 7.7 (2-11) % Eos % (Auto) 1.7 (0-4) % Baso % (Auto) 0.9 (0-2) % Lymph # (Auto) 2.9 (1.2-4.9) X10*3/uL [place] # (Auto) 0.5 (0.1-1.2) X10*3/uL Eos # (Auto) 0.1 (0.0-0.4) X10*3/uL Baso # (Auto) 0.1 (0.0-0.2) X10*3/uL Abs Immat Gran (auto) 0.02 (0.00-0.03) X10*3/uL Absolute Neuts (auto) 3.5 (2.0-8.3) X10*3/uL Absolute Nucleated RBC 0.000 (0.0-0.012) X10*3/uL Nucleated RBC % (auto) 0.0 (0.0-0.2) /100WBC Sodium 142 (135-145) mmol/L Potassium 4.1 (3.3-5.1) mmol/L Chloride 107 (96-108) mmol/L Carbon Dioxide 26 (22-29) mmol/L Anion Gap 13 (12-20) BUN 12 (9-16) mg/dL Creatinine 0.97 (0.5-1.4) mg/dL Estim Creat Clear Calc 52.3 Estimated GFR 59 Random Glucose 94 D (60-115) mg/dL Calcium 9.7 D (8.4-10.2) mg/dL Magnesium 2.3 (1.6-2.6) mg/dL Total Bilirubin 0.5 (0.0-1.0) mg/dL Direct Bilirubin < 0.2 (0.0-0.5) mg/dL AST 18 (5-31) U/L ALT 12 (0-31) U/L Alkaline Phosphatase 99 (39-117) U/L Total Protein 7.9 (6.5-8.0) g/dL Albumin 4.3 (3.5-5.0) g/dL Urine Color YELLOW Urine Appearance CLEAR Urine pH 7.0 (5.0-8.0) Ur Specific [place] 1.015 (1.005-1.025) Urine Protein NEG (NEG-TRACE) MG/DL Urine Glucose (UA) NEG (NEG) MG/DL Urine Ketones NEG (NEG) MG/DL Urine Blood NEG (NEG) Urine Nitrite NEG (NEG) Ur Leukocyte Esterase NEG (NEG) Discharge Plan Discharge Clinical Impression: Groin strain Patient Disposition: Home, Self-Care Instructions: Groin Strain (ED) Additional Instructions: Your lab workup today was unremarkable. Your urine test was normal. Your CT scan was normal. Your pain is most likely due to muscle strain. Recommend rest. Use ice several times per day. Take the prescribed anti-inflammatory medication as needed for pain. Follow up with your doctor as needed. If you develop new or worsening symptoms call 911 or come back to the ER for further evaluation. Prescriptions: New naproxen 500 mg tablet 500 mg PO BID PRN (Reason: pain) Qty: 20 RF: 0 No Action Biktarvy 50-200-25 mg Tablet 1 tab PO DAILY RF: 0 trazodone 50 mg Tablet 50 mg PO BEDTIME RF: 0 sertraline 100 mg Tablet 150 mg PO DAILY RF: 0 mirtazapine 15 mg Tablet 15 mg PO BEDTIME RF: 0 ergocalciferol (vitamin D2) [Vitamin D2] 1,250 mcg (50,000 unit) Capsule 1,250 mcg PO QWEEK RF: 0 prednisone 20 mg tablet 40 mg PO BID 5 Days Qty: 20 RF: 0 albuterol sulfate 90 mcg/actuation HFA aerosol inhaler 2 inh inhalation Q6-8H PRN (Reason: shortness of breath or wheezing) Qty: 18 RF: 0 omeprazole magnesium [Prilosec OTC] 20 mg tablet,delayed release (DR/EC) 20 mg PO DAILY Qty: 30 RF: 0 Referrals: Krzysztof Gregg MD [Primary Care Provider] - 1 week [facility] Past Medical History Attestation statement: The following information was validated with the patient. Medical History Asthma HIV (human immunodeficiency virus infection) Social History Social History Alcohol intake: never Substance Use Type: Crack/Cocaine and Marijuana Advance Directives: No Advance Directives Information Provided: No Patient : No service: No Current occupational status: unemployed
[2021-05-11] MEDS: 0.9 % Sodium Chloride 1,000 ML 999 ML IVCONT (14:53)
[2021-05-11] MEDS: Ketorolac Tromethamine 15 MG/ML VIAL 30 MG IVPUSH (14:53)
[2021-05-11 14:59] LABS: MANUAL DIFF FLAG NO
[2021-05-11 15:00] LABS: Basophils Absolute Auto 0.1 X10*3/uL (0.0-0.2); Basophils Percent Auto 0.9 % (0-2); Eosinophils Absolute Auto 0.1 X10*3/uL (0.0-0.4); Eosinophils Percent Auto 1.7 % (0-4); Hematocrit 39.8 % (37-47); Imm Gran Abs Auto 0.02 X10*3/uL (0.00-0.03); Imm Gran Pct Auto 0.3 % (0.0-0.4); Lymphocytes Absolute Auto 2.9 X10*3/uL (1.2-4.9); Lymphocytes Percent Auto 40.6 % (20-40); Mean Corpuscular HGB Conc 32.7 g/dl (31.0-35.0); Mean Corpuscular Hemoglobin 29.3 pg (27.0-33.0); Mean Corpuscular Volume 89.8 fL (80-98); Monocytes Absolute Auto 0.5 X10*3/uL (0.1-1.2); Monocytes Percent Auto 7.7 % (2-11); Neutrophils Absolute Auto 3.5 X10*3/uL (2.0-8.3); Neutrophils Percent Auto 48.8 % (45-73); Platelet Count 271 X10*3/uL (160-400); Red Blood Count 4.43 X10*6/uL (4.20-5.50); Red Cell Distribution Width 13.4 % (11.0-16.0); White Blood Count 7.1 X10*3/uL (4.8-10.8)
[2021-05-11 15:01] LABS: Glucose Urine UA NEG (NEG); Leukocyte Esterase Urine NEG (NEG); Nitrite Urine NEG (NEG); Specific Gravity - Urine 1.015 (1.005-1.025); Urine Blood NEG (NEG); Urine Ketones NEG (NEG); Urine Protein NEG (NEG-TRACE)
[2021-05-11 15:11] LABS: Appearance Urine CLEAR; Color Urine YELLOW
[2021-05-11 15:22] LABS: Alanine Aminotransferase 12 U/L (0-31); Albumin Level 4.3 g/dL (3.5-5.0); Alkaline Phosphatase 99 U/L (39-117); Anion Gap 13 (12-20); Aspartate Amino Transferase 18 U/L (5-31); Bilirubin Direct < 0.2 mg/dL (0.0-0.5); Bilirubin Total 0.5 mg/dL (0.0-1.0); Blood Urea Nitrogen 12 mg/dL (9-16); Calcium 9.7 mg/dL (8.4-10.2); Carbon Dioxide 26 mmol/L (22-29); Chloride 107 mmol/L (96-108); Creatinine Clr Calc Pharmacy 52.3; Estimated Glomerular Filt Rate 59; Glucose Random 94 mg/dL (60-115); Magnesium 2.3 mg/dL (1.6-2.6); Potassium 4.1 mmol/L (3.3-5.1); Sodium 142 mmol/L (135-145); Total Protein 7.9 g/dL (6.5-8.0)
== END 2021-05-11 16:15 | disposition home or self-care (01) ==
PROVIDERS: Physician Assistant; Emergency Provider Emergency Medicine; PCP Internal Medicine Infectious Disease
DX: S39.011A Strain of muscle, fascia and tendon of abdomen, initial encounter (principal); X58.XXXA Exposure to other specified factors, initial encounter; R10.9 Unspecified abdominal pain; B20 Human immunodeficiency virus [HIV] disease; F14.10 Cocaine abuse, uncomplicated; Z79.899 Other long term (current) drug therapy; Y93.9 Activity, unspecified; Y92.9 Unspecified place or not applicable; Y99.9 Unspecified external cause status
CPT/HCPCS: 36415; 74176; 80048; 80076; 81003; 83735; 85025; 96361; 96374; 99284; J1885

== ENCOUNTER 2023-12-11 19:14 | Emergency (ER) | payer OTHER, SELFPAY ==
--- NOTE | ~2023-12-11 | XR_ITS ---
EXAMINATION: XR CHEST CLINICAL INFORMATION: Cough and shortness of breath and chest pain COMPARISON: Previous chest x-ray July 2020 TECHNIQUE: Frontal view of the chest was obtained. FINDINGS: No significant abnormality is noted involving the heart, lungs, mediastinum, bony thorax or soft tissues. XR/XR chest 1V IMPRESSION: Unremarkable examination.
--- NOTE | 2023-12-11 19:28 | ECG_ITS ---
Test Reason : CHEST PAIN Blood Pressure : / mmHG Vent. Rate : 085 BPM Atrial Rate : 085 BPM P-R Int : 130 ms QRS Dur : 086 ms QT Int : 390 ms P-R-T Axes : 074 069 053 degrees QTc Int : 464 ms Normal sinus rhythm Minimal voltage criteria for LVH, may be normal variant ( Sokolow-Bueno ) Borderline ECG When compared with ECG of 13-FEB-2012 18:19, No significant change was found Referred By: Generic ED Physician Electronically Signed By:Beto Tan
[2023-12-11 19:29] VITALS: BP 116/68; BP 140/92; PULSE 80; PULSE 84; RESP 18; TEMP 36.7; O2SAT 96; BMI 24.8
[2023-12-11 19:52] LABS: MANUAL DIFF FLAG NO
[2023-12-11 19:55] LABS: Basophils Percent Auto 0.6 % (0-2); Eosinophils Absolute Auto 0.2 X10*3/uL (0.0-0.4); Eosinophils Percent Auto 2.6 % (0-4); Hematocrit 37.5 % (37.0-47.0); Hemoglobin 12.4 g/dl (12.0-16.0); Imm Gran Abs Auto 0.03 X10*3/uL (0.00-0.03); Imm Gran Pct Auto 0.4 % (0.0-0.4); Lymphocytes Absolute Auto 2.2 X10*3/uL (1.2-4.9); Lymphocytes Percent Auto 32.2 % (20-40); Mean Corpuscular HGB Conc 33.1 g/dl (31.0-35.0); Mean Corpuscular Hemoglobin 29.3 pg (27.0-33.0); Mean Corpuscular Volume 88.7 fL (80.0-98.0); Mean Platelet Volume 10.4 fL (9.4-12.3); Monocytes Absolute Auto 0.5 X10*3/uL (0.1-1.2); Monocytes Percent Auto 7.3 % (2-11); Neutrophils Absolute Auto 3.9 x10*3/uL (2.0-8.3); Neutrophils Percent Auto 56.9 % (45-73); Platelet Count 243 X10*3/uL (160-400); Red Blood Count 4.23 X10*6/uL (4.20-5.50); Red Cell Distribution Width 13.1 % (11.0-16.0); White Blood Count 6.8 X10*3/uL (4.8-10.8)
[2023-12-11 20:18] LABS: Alanine Aminotransferase 12 U/L (0-31); Alkaline Phosphatase 73 U/L (39-117); Anion Gap 11 (12-20); Aspartate Amino Transferase 17 U/L (5-31); Bilirubin Total 0.2 mg/dL (0.0-1.0); Blood Urea Nitrogen 11 mg/dL (9-16); Calcium 9.2 mg/dL (8.4-10.2); Carbon Dioxide 29 mmol/L (22-29); Chloride 109 mmol/L (96-108); Estimated Glomerular Filt Rate 56; Glucose Random 105 mg/dL (60-115); Potassium 3.8 mmol/L (3.3-5.1); Sodium 145 mmol/L (135-145); Total Protein 7.5 g/dL (6.5-8.0)
[2023-12-11 20:32] LABS: Troponin-I High Sensitivity < 2.7 ng/L (<3.5-17.0)
--- NOTE | 2023-12-11 20:33 | ED_ITS ---
HPI - Asthma General Chief Complaint: Asthma Stated Complaint: sob,asthma Time Seen by Provider: 12/11/23 20:05 Source: patient, RN notes reviewed and old records reviewed Mode of arrival: EMS Limitations: no limitations History of Present Illness HPI Narrative: 63-year-old female with a past medical history significant for asthma presents for evaluation of shortness of breath and cough Patient reports her symptoms started 4 days ago. She was seen at [facility] last Saturday. She states ?they gave me some steroids through the IV and that was it, they did not give me any breathing treatments or prescriptions to go home with. ? Patient reports she has been using her Symbicort and albuterol as needed. She reports she has a nebulizer at home which she has been using as well She continues to endorse audible wheezing, shortness of breath and cough She denies any fevers or chills The patient smokes marijuana but not tobacco Related Data Home Medications Medication Instructions Recorded Confirmed bictegravir 50 mg-emtricitabine 1 tab PO DAILY 07/28/20 07/28/20 200 mg-tenofovir alafenam 25 mg tablet (Biktarvy) ergocalciferol (vitamin D2) 1,250 1,250 mcg PO QWEEK 07/28/20 07/28/20 mcg (50,000 unit) capsule (Vitamin D2) mirtazapine 15 mg tablet 15 mg PO BEDTIME 07/28/20 07/28/20 sertraline 100 mg tablet 150 mg PO DAILY 07/28/20 07/28/20 trazodone 50 mg tablet 50 mg PO BEDTIME 07/28/20 07/28/20 Previous Rx's Medication Instructions Recorded albuterol sulfate 90 mcg/actuation 2 inh inhalation Q6-8H PRN 07/29/20 aerosol inhaler shortness of breath or wheezing #18 grams omeprazole magnesium 20 mg 20 mg PO DAILY #30 tabs 07/29/20 tablet,delayed release (Prilosec OTC) prednisone 20 mg tablet 40 mg (2 x 20 mg) PO BID 5 days 07/29/20 #20 tabs naproxen 500 mg tablet 500 mg PO BID PRN pain #20 tabs 05/11/21 prednisone 20 mg tablet 40 mg (2 x 20 mg) PO DAILY #10 tabs 12/11/23 Allergies Allergy/AdvReac Type Severity Reaction Status Date / Time No Known Allergies Allergy Mild NKA Verified 07/27/20 00:44 Review of Systems 2 Constitutional: Constitutional: Denies body ache(s), Denies chills, Denies fever(s) and Denies malaise Eyes: Eyes: Denies blurry vision ENT: Denies sore throat Cardiovascular: Cardiovascular: Denies chest pain and Reports dyspnea Respiratory: Respiratory: Reports cough, Reports dyspnea and Reports wheezing Gastrointestinal: Gastrointestinal: Denies abdominal pain, Denies nausea and Denies vomiting Musculoskeletal: Musculoskeletal: Denies back pain Integumentary/Breasts: Skin/Breast: Denies rash Allergic/Immunologic: Allergic/Immunologic: Reports wheezing PMFSH Past Medical History Medical History Asthma HIV (human immunodeficiency virus infection) Social History Social History Alcohol intake: never Substance Use Type: Crack/Cocaine and Marijuana Advance Directives: No Advance Directives Information Provided: No service: No Current occupational status: unemployed Physical Exam 2 Vital Signs: Vital Signs: Last Vital Signs Temp 98.0 F 12/11/23 19:29 Pulse 80 12/11/23 19:29 Resp 18 12/11/23 19:29 BP 116/68 12/11/23 19:29 Pulse Ox 96 12/11/23 19:29 O2 Del Method Room Air 12/11/23 19:29 BMI result Body Mass Index 24.8 Const: General: healthy appearing, comfortable, no acute distress, alert and awake Nutritional Appearance: well nourished Orientation/consciousness: p atient oriented x3 HEENT: Head: Yes normocephalic and Yes atraumatic Eyes: Eyelids: Yes eyelids normal Conjunctivae: conjunctivae normal S clerae: sclerae normal Corneas: corneas normal Pupils: Equal, round and reactive pupils present EOM: EOMs intact bilaterally Neck: Neck: Yes full ROM Resp: Effort & Inspection: normal respiratory effort, able to speak in complete sentences and not labored Auscultation: not clear to auscultation bilaterally and wheezes (Diffuse wheezing) GI: Inspection: No distended Palpation (GI): Soft to palpation, not firm, nontender, no guarding and not rigid Skin: General skin exam: elasticity normal Neuro: General: patient oriented x3 Cranial nerves: Yes CN's II-XII intact bilaterally, Yes Equal, round and reactive pupils present and Yes Bilaterally intact EOM present Cognition (Neuro): normal cognition Course Reevaluation(s) Reevaluation #1: Patient reports feeling better after treatment, vital signs remained stable, will discharge the patient with a course of prednisone and she was encouraged to use [id number] medication stopped smoking Time: 21:00 Medications Administered Discontinued Medications Generic Name Dose Route Start Last Admin Trade Name Terrence PRN Reason Stop Dose Admin Albuterol Sulfate 7.5 mg/ 10 mg 12/11/23 20:47 12/11/23 20:50 Albuterol Sulfate 2.5 mg INHALE 12/11/23 20:48 10 mg ONCE ONE Administration Methylprednisolone Sodium Succinate 60 mg 12/11/23 20:11 12/11/23 20:35 Methylprednisolone Sod Succ 125 Mg/2 Ml Vial IVPUSH 12/11/23 20:12 60 mg ONCE ONE Administration Medical Decision Making Medical Decision Making [facility] Narrative: 63-year-old female presents for evaluation of shortness of breath and cough x3 days. She has a history of asthma. She has wheezing on exam likely related to asthma. Plan for viral swabs, chest x-ray to rule out infiltrate. Basic labs are pending will treat the patient with Solu-Medrol 60 mg IV and a breathing treatment. The patient is currently hemodynamically stable Differential Diagnosis Differential Diagnoses: The differential diagnosis associated with the presentation includes Asthma exacerbation Bronchitis Upper respiratory infection Pneumonia Lab Data [facility] Lab Attestation statement: I reviewed the patient's lab results. No leukocytosis, left shift or anemia. No significant electrolyte abnormalities 12/11/23 19:43 12/11/23 19:43 Labs: Lab Results 12/11/23 Range/Units 19:43 WBC 6.8 (4.8-10.8) X10*3/uL RBC 4.23 (4.20-5.50) X10*6/uL Hgb 12.4 (12.0-16.0) g/dl Hct 37.5 (37.0-47.0) % MCV 88.7 (80.0-98.0) fL MCH 29.3 (27.0-33.0) pg MCHC 33.1 (31.0-35.0) g/dl RDW 13.1 (11.0-16.0) % Plt Count 243 (160-400) X10*3/uL MPV 10.4 (9.4-12.3) fL Immature Gran % (Auto) 0.4 (0.0-0.4) % Neut % (Auto) 56.9 (45-73) % Lymph % (Auto) 32.2 (20-40) % [place] % (Auto) 7.3 (2-11) % Eos % (Auto) 2.6 (0-4) % Baso % (Auto) 0.6 (0-2) % Lymph # (Auto) 2.2 (1.2-4.9) X10*3/uL [place] # (Auto) 0.5 (0.1-1.2) X10*3/uL Eos # (Auto) 0.2 (0.0-0.4) X10*3/uL Baso # (Auto) 0.0 (0.0-0.2) X10*3/uL Abs Immat Gran (auto) 0.03 (0.00-0.03) X10*3/uL Absolute Neuts (auto) 3.9 (2.0-8.3) x10*3/uL Absolute Nucleated RBC 0.000 (0.0-0.012) X10*3/uL Nucleated RBC % (auto) 0.0 (0.0-0.2) /100WBC Sodium 145 (135-145) mmol/L Potassium 3.8 (3.3-5.1) mmol/L Chloride 109 H (96-108) mmol/L Carbon Dioxide 29 (22-29) mmol/L Anion Gap 11 L (12-20) BUN 11 (9-16) mg/dL Creatinine 1.00 (0.5-1.4) mg/dL Estim Creat Clear Calc 53.0 Estimated GFR 56 Random Glucose 105 (60-115) mg/dL Calcium 9.2 (8.4-10.2) mg/dL Total Bilirubin 0.2 (0.0-1.0) mg/dL AST 17 (5-31) U/L ALT 12 (0-31) U/L Alkaline Phosphatase 73 (39-117) U/L Troponin I High Sens < 2.7 (<3.5-17.0) ng/L Total Protein 7.5 (6.5-8.0) g/dL Albumin 4.0 (3.5-5.0) g/dL Influenza Type A (PCR) NEGATIVE (Negative) Influenza Type B (PCR) NEGATIVE (Negative) RSV RNA Qual (PCR) NEGATIVE (Negative) SARS-CoV-2 RNA (RT-PCR) NEGATIVE (Negative) Independent Interpretation I performed an independent interpretation of an: Plain X-Ray (No focal infiltrates) Discharge Plan Discharge Clinical Impression: Asthma exacerbation Patient Disposition: Home, Self-Care Instructions: Asthma (ED) Additional Instructions: You are negative for the flu, COVID, RSV. Your chest x-ray was clear. You likely have an asthma exacerbation Take prednisone 40 mg daily for the next 5 days I also recommend that he use an [id number] allergy medication Follow-up with your primary doctor Return for new or worsening symptoms Prescriptions: New prednisone 20 mg tablet 40 mg PO DAILY Qty: 10 0RF No Action Biktarvy 50-200-25 mg Tablet 1 tab PO DAILY trazodone 50 mg Tablet 50 mg PO BEDTIME sertraline 100 mg Tablet 150 mg PO DAILY mirtazapine 15 mg Tablet 15 mg PO BEDTIME ergocalciferol (vitamin D2) [Vitamin D2] 1,250 mcg (50,000 unit) Capsule 1,250 mcg PO QWEEK prednisone 20 mg tablet 40 mg PO BID 5 Days Qty: 20 0RF albuterol sulfate 90 mcg/actuation HFA aerosol inhaler 2 inh inhalation Q6-8H PRN (Reason: shortness of breath or wheezing) Qty: 18 0RF omeprazole magnesium [Prilosec OTC] 20 mg tablet,delayed release (DR/EC) 20 mg PO DAILY Qty: 30 0RF naproxen 500 mg tablet 500 mg PO BID PRN (Reason: pain) Qty: 20 0RF
[2023-12-11] MEDS: methylPREDNISolone Sod Succ 125 MG/2 ML VIAL 60 MG IVPUSH (20:35)
[2023-12-11] MEDS: Albuterol Sulfate 7.5 MG, Albuterol Sulfate (0.083%) 2.5 MG 10 MG INHALE (20:50)
[2023-12-11 20:56] LABS: Influenza A PCR NEGATIVE (Negative); Influenza B PCR NEGATIVE (Negative); Resp Syncy Virus RNA Qual PCR NEGATIVE (Negative); SARS COV2 PCR INHOUSE NEGATIVE (Negative)
[2023-12-11 21:52] VITALS: BP 154/85; PULSE 95; RESP 18; TEMP 36.4; O2SAT 99
[2023-12-11 22:10] VITALS: BP 154/85; PULSE 95; RESP 18; TEMP 36.4; O2SAT 99
== END 2023-12-11 22:11 | disposition home or self-care (01) ==
PROVIDERS: Emergency Provider Emergency Medicine
DX: J45.901 Unspecified asthma with (acute) exacerbation (principal); R07.9 Chest pain, unspecified; R06.02 Shortness of breath; R05.9 Cough, unspecified; Z11.52 Encounter for screening for COVID-19; Z20.828 Contact with and (suspected) exposure to other viral communicable diseases
CPT/HCPCS: 0241U; 36415; 71045; 80053; 84484; 85025; 93005; 96374; 99284; J2930

== ENCOUNTER → 2023-12-11 19:28 | Outpatient (BNV) | payer OTHER, SELFPAY | PROVIDERS: Emergency Provider Emergency Medicine; Visit Provider Internal Medicine Cardiovascular Disease | DX: R07.9 Chest pain, unspecified (principal) | CPT/HCPCS: 93010 ==

== ENCOUNTER 2024-07-27 13:08 | Emergency (ER) | payer OTHER, SELFPAY ==
[2024-07-27 13:10] VITALS: BP 198/96; PULSE 132; O2SAT 99
[2024-07-27 13:18] VITALS: BP 138/70; PULSE 111; RESP 12; TEMP 36.9; O2SAT 95; BMI 26.6
[2024-07-27 13:22] VITALS: BP 138/70; PULSE 111; RESP 12; TEMP 36.9; O2SAT 95
--- NOTE | 2024-07-27 13:38 | PC.NURSE ---
Pt comes to ED today via EMS for feeling overly anxious, tearful, and asking for help. Pt reports today [birth year] her birthday and used marijuana (and cocaine per EMS) and began to have heightened anxiety. Pt also reports she also has HTN and would like help with managing it. A&Ox3, VSS, afebrile. Pt denies SI/HI at this time. Pt is tearful but cooperative.
--- NOTE | 2024-07-27 14:22 | ED_ITS ---
HPI - General Adult General Chief complaint: Psychiatric Symptoms Stated complaint: Anxiety, substance abuse Time Seen by Provider: 07/27/24 14:22 Source: patient and EMS Mode of arrival: EMS Limitations: no limitations History of Present Illness ED Provider: Cristy Herrera PA-C HPI narrative: Patient is a 64 year old assigned female at with a history of anxiety, marijuana use, and cocaine use presenting to the emergency department today feeling like she was having emotional distress. Patient states that today [birth year] her birthday and used marijuana and cocaine and felt anxious / overwhelmed. Patient denies any thoughts of hurting herself or others. Patient denies any dizziness, lightheadedness, abdominal pain, nausea, vomiting, fever, chills, blurry vision, double vision, loss of vision, chest pain, difficulty breathing, shortness of breath, back pain, night sweats, pain with urination, increased urinary frequency, increased urinary urgency, blood in her urine or stool, syncope or a near syncopal episode, recent trauma or falls, bowel incontinence, bladder incontinence, or any other complaints at this time. Relieving factors: none Exacerbating factors: none Associated symptoms: denies other symptoms Treatments prior to arrival: none Related Data Home Medications ?Medication ?Instructions ?Recorded ?Confirmed bictegravir 50 mg-emtricitabine 1 tab PO DAILY 07/28/20 07/28/20 200 mg-tenofovir alafenam 25 mg tablet (Biktarvy) ergocalciferol (vitamin D2) 1,250 1,250 mcg PO QWEEK 07/28/20 07/28/20 mcg (50,000 unit) capsule (Vitamin D2) mirtazapine 15 mg tablet 15 mg PO BEDTIME 07/28/20 07/28/20 sertraline 100 mg tablet 150 mg PO DAILY 07/28/20 07/28/20 trazodone 50 mg tablet 50 mg PO BEDTIME 07/28/20 07/28/20 Previous Rx's ?Medication ?Instructions ?Recorded albuterol sulfate 90 mcg/actuation 2 inh inhalation Q6-8H PRN 07/29/20 aerosol inhaler shortness of breath or wheezing #18 grams omeprazole magnesium 20 mg 20 mg PO DAILY #30 tabs 07/29/20 tablet,delayed release (Prilosec OTC) prednisone 20 mg tablet 40 mg (2 x 20 mg) PO BID 5 days 07/29/20 #20 tabs naproxen 500 mg tablet 500 mg PO BID PRN pain #20 tabs 05/11/21 prednisone 20 mg tablet 40 mg (2 x 20 mg) PO DAILY #10 tabs 12/11/23 Allergies Allergy/AdvReac Type Severity Reaction Status Date / Time No Known Allergies Allergy Mild NKA Verified 07/27/24 13:20 Review of Systems Constitutional: Constitutional: Reports no additional constitutional complaints, Denies chills, Denies fever(s) and Denies night sweats Eyes: Eyes: Reports no additional eye complaints, Denies blurry vision, Denies change in vision, Denies diplopia, Denies eye discharge, Denies loss of vision and Denies eye pain ENT: Denies dizziness Cardiovascular: Cardiovascular: Reports no additional cardiovascular complaints, Denies chest pain, Denies lightheadedness, Denies Loss of Consciousness and Denies dyspnea Respiratory: Respiratory: Reports no additional respiratory complaints and Denies dyspnea Gastrointestinal: Gastrointestinal: Reports no additional gastrointestinal complaints, Denies abdominal pain, Denies melena, Denies hematochezia, Denies change in bowel habits and Denies change in stool character Genitourinary: Genitourinary: Denies hematuria, Denies urinary frequency, Denies dysuria, Denies urinary incontinence, Denies urinary hesitancy and Denies urinary urgency Musculoskeletal: Musculoskeletal: Reports no additional musculoskeletal complaints, Denies numbness and Denies tingling Neurologic: Denies dizziness, Denies loss of vision, Denies numbness and Denies tingling Psychiatric: Psychiatric: Reports anxiety Endocrine: Endocrine: Reports no additional endocrine complaints Hematologic/Lymphatic: Hematologic/Lymphatic: Reports no additional hematologic/lymphatic complaints Allergic/Immunologic: Allergic/Immunologic: Reports no additional allergic/immunologic complaints [facility] Past Medical History Attestation statement: The following information was validated with the patient. Source: old records reviewed and nursing notes reviewed Medical History HIV (human immunodeficiency virus infection) Asthma Social History Social History Alcohol intake: never Smoked in Last 30 Days: No Use of substances other than those prescribed or required for medical reasons: Yes Substance Use Type: Crack/Cocaine and Marijuana Substance Use Frequency: Daily Advance Directives: No Advance Directives Information Provided: Yes Do you have a plan to hurt others: No Plan Patient : No service: No Current occupational status: unemployed Physical Exam ED Vital Signs: Vital Signs - 24 hr 07/27/24 13:18 07/27/24 13:22 07/27/24 15:29 Temperature 98.4 F 98.4 F 98.4 F Pulse Rate 111 H 111 H 111 H Respiratory Rate 12 12 12 Blood Pressure 138/70 138/70 138/70 Pulse Oximetry 95 95 95 Oxygen Delivery Method Room Air Room Air Room Air BMI result Body Mass Index 26.6 Const General: cooperative, no acute distress, alert and awake Nutritional Appearance: well nourished Orientation/consciousness: patient oriented x3 Limitations: no limitations HENMT Head: Yes normal to inspection and Yes atraumatic Ears: hearing grossly normal bilaterally and external ears normal General nose exam: Normal external nose present, no nasal discharge noted and no epistaxis Face and sinus: Yes normal facial exam, No abrasion and No laceration Mouth: Normal oral and palatal mucosa present, no drooling and no muffled voice Eyes General: appearance normal, both eyes and all related structures Periorbital: periorbital findings normal Eyelids: Yes eyelids normal Conjunctivae: conjunctivae normal Pupils: Equal, round and reactive pupils present EOM: EOMs intact bilaterally Neck Neck: Yes normal visual inspection, Yes full ROM and Yes no lymphadenopathy Chest Chest palpation & inspection: normal inspection of the chest Resp Effort & Inspection: normal respiratory effort and able to speak in complete sentences GI Inspection: Yes normal to inspection Neuro General: patient oriented x3 and moves all extremities Cranial nerves: Yes Equal, round and reactive pupils present Cognition (Neuro): normal cognition Extrem General: Yes normal to inspection, Yes full ROM and Yes capillary refill normal Psych Appearance: grossly normal Mental Status: mental status grossly normal Affect: normal affect Attitude: cooperative Thought process: Normal thought process present Thought content: Normal thought content present Insight: Good insight present (Psych) Medical Decision Making Medical Decision Making MDM Narrative: Patient is a 64 year old assigned female at with a history of anxiety, marijuana use, and cocaine use presenting to the emergency department today feeling like she was having emotional distress. Patient's physical exam was unremarkable. Patient refused all blood work or to speak with the CARE Team. I explained my physical exam findings to the patient. I answered all questions asked by the patient. I stressed the importance of the patient taking her medication as directed (either prescribed or as the over the counter packaging recommends). I stressed the importance of the patient following up with her primary care provider. I stressed the importance of the patient returning to the emergency department immediately if her symptoms were to worsen or if she were to develop any dizziness, shortness of breath, difficulty breathing, chest pain, blurry vision, loss of vision, nausea, vomiting, abdominal pain, fever, chills, back pain, or any other complaints. Patient verbalized agreement and understanding with this treatment plan and discharge. Differential Diagnosis Differential Diagnoses: The differential diagnosis associated with the presentation includes Emotional distress Cocaine use Marijuana use Admission/Observation Consideration of admission/observation: Escalation of care including admission/observation considered Patient would have been admitted to the hospital had her clinical presentation warranted hospital admission. Independent Historian Clinical information obtained from an independent historian. History obtained from or confirmed by: EMS (EMS provided additional history and confirmed the history provided by the patient.) Discharge Plan Discharge Clinical Impression: Cocaine use, Marijuana use, Anxiety Patient Disposition: Home, Self-Care Instructions: Anxiety (ED) Additional Instructions: Follow up with your primary care provider. Return to the emergency department immediately if your symptoms worsen or if you develop any dizziness, shortness of breath, difficulty breathing, chest pain, blurry vision, loss of vision, nausea, vomiting, abdominal pain, fever, chills, back pain, or any other complaints. [facility]: [address], [place] [id number] Walk in hours from 10am - 12pm Open from 10am - 12pm [facility] Crisis Services: [address] [place] [address] Walk in hours from 10am - 12pm Open 08/04 [facility]: [address] [place] [id number] [address] [place] [id number] Hours: M-F 8am to 8pm Saturday and Saturday 9am to 5pm Prescriptions: No Action Biktarvy 50-200-25 mg Tablet 1 tab PO DAILY trazodone 50 mg Tablet 50 mg PO BEDTIME sertraline 100 mg Tablet 150 mg PO DAILY mirtazapine 15 mg Tablet 15 mg PO BEDTIME ergocalciferol (vitamin D2) [Vitamin D2] 1,250 mcg (50,000 unit) Capsule 1,250 mcg PO QWEEK prednisone 20 mg tablet 40 mg PO BID 5 Days Qty: 20 0RF albuterol sulfate 90 mcg/actuation HFA aerosol inhaler 2 inh inhalation Q6-8H PRN (Reason: shortness of breath or wheezing) Qty: 18 0RF omeprazole magnesium [Prilosec OTC] 20 mg tablet,delayed release (DR/EC) 20 mg PO DAILY Qty: 30 0RF naproxen 500 mg tablet 500 mg PO BID PRN (Reason: pain) Qty: 20 0RF prednisone 20 mg tablet 40 mg PO DAILY Qty: 10 0RF Interventions: [place]-Suicide Risk Severity Scale Last Done: 07/27/24 13:22 ED Discharge Assessment Last Done: 07/27/24 15:29 Discharge Date/Time: 07/27/24 15:29 Print Language: Serbian
[2024-07-27 15:29] VITALS: BP 138/70; PULSE 111; RESP 12; TEMP 36.9; O2SAT 95
== END 2024-07-27 15:29 | disposition home or self-care (01) ==
PROVIDERS: Emergency Provider Emergency Medicine
DX: F41.1 Generalized anxiety disorder (principal); F14.90 Cocaine use, unspecified, uncomplicated; F12.90 Cannabis use, unspecified, uncomplicated; Z79.899 Other long term (current) drug therapy
CPT/HCPCS: 99285

== ENCOUNTER 2024-08-11 15:34 | Emergency (ER) | payer OTHER, SELFPAY ==
[2024-08-11 15:39] VITALS: BP 162/94; PULSE 108; O2SAT 99
--- NOTE | 2024-08-11 15:56 | ED.GENADULT ---
HPI - General Adult General Chief complaint: Anxiety Stated complaint: Anxiety induced HTN, marijuana use, 150 systolic Related Data Home Medications ?Medication ?Instructions ?Recorded ?Confirmed bictegravir 50 mg-emtricitabine 1 tab PO DAILY 07/28/20 07/28/20 200 mg-tenofovir alafenam 25 mg tablet (Biktarvy) ergocalciferol (vitamin D2) 1,250 1,250 mcg PO QWEEK 07/28/20 07/28/20 mcg (50,000 unit) capsule (Vitamin D2) mirtazapine 15 mg tablet 15 mg PO BEDTIME 07/28/20 07/28/20 sertraline 100 mg tablet 150 mg PO DAILY 07/28/20 07/28/20 trazodone 50 mg tablet 50 mg PO BEDTIME 07/28/20 07/28/20 Previous Rx's ?Medication ?Instructions ?Recorded albuterol sulfate 90 mcg/actuation 2 inh inhalation Q6-8H PRN 07/29/20 aerosol inhaler shortness of breath or wheezing #18 grams omeprazole magnesium 20 mg 20 mg PO DAILY #30 tabs 07/29/20 tablet,delayed release (Prilosec OTC) prednisone 20 mg tablet 40 mg (2 x 20 mg) PO BID 5 days 07/29/20 #20 tabs naproxen 500 mg tablet 500 mg PO BID PRN pain #20 tabs 05/11/21 prednisone 20 mg tablet 40 mg (2 x 20 mg) PO DAILY #10 tabs 12/11/23 Allergies Allergy/AdvReac Type Severity Reaction Status Date / Time No Known Allergies Allergy Mild NKA Verified 08/11/24 15:58 PMFSH Past Medical History Medical History HIV (human immunodeficiency virus infection) Asthma Social History Social History Alcohol intake: never Substance Use Type: Crack/Cocaine and Marijuana Advance Directives: No Advance Directives Information Provided: No service: No Current occupational status: unemployed Physical Exam ED Vital Signs: BMI result Body Mass Index 23.4 Course Course Course Narrative: This is a rapid medical exam performed by Meena Cruz NP: Additional HPI, ROS, PE not included below will be deferred to primary provider. Patient is a 64-year-old female presenting to the ED with complaint of palpitations, anxiety, high BP after smoking marijuana prior to arrival. Plan: EKG, labs Medications Administered Discontinued Medications Generic Name Dose Route Start Last Admin Trade Name Terrence PRN Reason Stop Dose Admin Acetaminophen 650 mg 08/11/24 15:59 08/11/24 16:00 Acetaminophen 325 Mg Tablet PO 08/11/24 16:00 650 mg ONCE ONE Administration Medical Decision Making Lab Data 08/11/24 16:16 08/11/24 16:16 Labs: Lab Results 08/11/24 Range/Units 16:16 WBC 8.7 (4.8-10.8) X10*3/uL RBC 4.60 (4.20-5.50) X10*6/uL Hgb 13.4 (12.0-16.0) g/dl Hct 40.0 (37.0-47.0) % MCV 87.0 (80.0-98.0) fL MCH 29.1 (27.0-33.0) pg MCHC 33.5 (31.0-35.0) g/dl RDW 14.2 (11.0-16.0) % Plt Count 216 (160-400) X10*3/uL MPV 11.2 (9.4-12.3) fL Immature Gran % (Auto) 0.3 (0.0-0.4) % Neut % (Auto) 80.9 H (45-73) % Lymph % (Auto) 11.7 L (20-40) % [place] % (Auto) 5.8 (2-11) % Eos % (Auto) 0.7 (0-4) % Baso % (Auto) 0.6 (0-2) % Lymph # (Auto) 1.0 L (1.2-4.9) X10*3/uL [place] # (Auto) 0.5 (0.1-1.2) X10*3/uL Eos # (Auto) 0.1 (0.0-0.4) X10*3/uL Baso # (Auto) 0.1 (0.0-0.2) X10*3/uL Abs Immat Gran (auto) 0.03 (0.00-0.03) X10*3/uL Absolute Neuts (auto) 7.0 (2.0-8.3) x10*3/uL Absolute Nucleated RBC 0.000 (0.0-0.012) X10*3/uL Nucleated RBC % (auto) 0.0 (0.0-0.2) /100WBC Sodium 140 (135-145) mmol/L Potassium 3.7 (3.3-5.1) mmol/L Chloride 105 (96-108) mmol/L Carbon Dioxide 27 (22-29) mmol/L Anion Gap 12 (12-20) BUN 14 (9-16) mg/dL Creatinine 0.85 (0.5-1.4) mg/dL Estim Creat Clear Calc 64.2 Estimated GFR > 60 Random Glucose 115 (60-115) mg/dL Calcium 9.8 D (8.4-10.2) mg/dL Total Bilirubin 0.3 (0.0-1.0) mg/dL AST 24 (5-31) U/L ALT 20 (0-31) U/L Alkaline Phosphatase 82 (39-117) U/L Troponin I High Sens < 2.7 (<3.5-17.0) ng/L Total Protein 8.1 H (6.5-8.0) g/dL Albumin 4.4 (3.5-5.0) g/dL Discharge Plan Discharge Clinical Impression: Palpitation Patient Disposition: Left W/O Completing Treatment Prescriptions: No Action Biktarvy 50-200-25 mg Tablet 1 tab PO DAILY trazodone 50 mg Tablet 50 mg PO BEDTIME sertraline 100 mg Tablet 150 mg PO DAILY mirtazapine 15 mg Tablet 15 mg PO BEDTIME ergocalciferol (vitamin D2) [Vitamin D2] 1,250 mcg (50,000 unit) Capsule 1,250 mcg PO QWEEK prednisone 20 mg tablet 40 mg PO BID 5 Days Qty: 20 0RF albuterol sulfate 90 mcg/actuation HFA aerosol inhaler 2 inh inhalation Q6-8H PRN (Reason: shortness of breath or wheezing) Qty: 18 0RF omeprazole magnesium [Prilosec OTC] 20 mg tablet,delayed release (DR/EC) 20 mg PO DAILY Qty: 30 0RF naproxen 500 mg tablet 500 mg PO BID PRN (Reason: pain) Qty: 20 0RF prednisone 20 mg tablet 40 mg PO DAILY Qty: 10 0RF Discharge Date/Time: 08/11/24 20:03
[2024-08-11 15:57] VITALS: BP 127/83; PULSE 104; RESP 18; TEMP 37; O2SAT 98; BMI 23.4
--- NOTE | 2024-08-11 15:58 | ECG_ITS ---
Test Reason : chest pain Blood Pressure : / mmHG Vent. Rate : 098 BPM Atrial Rate : 098 BPM P-R Int : 140 ms QRS Dur : 082 ms QT Int : 352 ms P-R-T Axes : 068 044 044 degrees QTc Int : 449 ms Normal sinus rhythm Normal ECG When compared with ECG of 11-DEC-2023 19:33, No significant change was found Referred By: Cheryl Cruz Electronically Signed By:REHAN ARMSTRONG
[2024-08-11] MEDS: Acetaminophen 325 MG TABLET 650 MG PO (16:00)
[2024-08-11 16:20] LABS: MANUAL DIFF FLAG NO
[2024-08-11 16:27] LABS: Basophils Absolute Auto 0.1 X10*3/uL (0.0-0.2); Basophils Percent Auto 0.6 % (0-2); Eosinophils Absolute Auto 0.1 X10*3/uL (0.0-0.4); Eosinophils Percent Auto 0.7 % (0-4); Hemoglobin 13.4 g/dl (12.0-16.0); Imm Gran Abs Auto 0.03 X10*3/uL (0.00-0.03); Imm Gran Pct Auto 0.3 % (0.0-0.4); Lymphocytes Percent Auto 11.7 % (20-40); Mean Corpuscular HGB Conc 33.5 g/dl (31.0-35.0); Mean Corpuscular Hemoglobin 29.1 pg (27.0-33.0); Mean Platelet Volume 11.2 fL (9.4-12.3); Monocytes Absolute Auto 0.5 X10*3/uL (0.1-1.2); Monocytes Percent Auto 5.8 % (2-11); Neutrophils Percent Auto 80.9 % (45-73); Platelet Count 216 X10*3/uL (160-400); Red Cell Distribution Width 14.2 % (11.0-16.0); White Blood Count 8.7 X10*3/uL (4.8-10.8)
[2024-08-11 16:44] LABS: Alanine Aminotransferase 20 U/L (0-31); Albumin Level 4.4 g/dL (3.5-5.0); Anion Gap 12 (12-20); Aspartate Amino Transferase 24 U/L (5-31); Bilirubin Total 0.3 mg/dL (0.0-1.0); Blood Urea Nitrogen 14 mg/dL (9-16); Calcium 9.8 mg/dL (8.4-10.2); Carbon Dioxide 27 mmol/L (22-29); Chloride 105 mmol/L (96-108); Creatinine Clr Calc Pharmacy 64.2; Estimated Glomerular Filt Rate > 60; Glucose Random 115 mg/dL (60-115); Potassium 3.7 mmol/L (3.3-5.1); Sodium 140 mmol/L (135-145); Total Protein 8.1 g/dL (6.5-8.0); Troponin-I High Sensitivity < 2.7 ng/L (<3.5-17.0)
[2024-08-11 16:51] LABS: Alkaline Phosphatase 82 U/L (39-117)
== END 2024-08-11 20:03 | disposition left against medical advice (07) ==
PROVIDERS: Registered Nurse Emergency; Emergency Provider Internal Medicine
DX: R00.2 Palpitations (principal); F41.9 Anxiety disorder, unspecified; R07.89 Other chest pain; F12.90 Cannabis use, unspecified, uncomplicated; F14.90 Cocaine use, unspecified, uncomplicated; Z79.899 Other long term (current) drug therapy
CPT/HCPCS: 36415; 80053; 84484; 85025; 93005; 99283

== ENCOUNTER → 2024-08-11 15:58 | Outpatient (BNV) | payer OTHER, SELFPAY | PROVIDERS: Emergency Provider Internal Medicine; Visit Provider Internal Medicine | DX: R07.9 Chest pain, unspecified (principal) | CPT/HCPCS: 93010 ==

== ENCOUNTER 2025-02-26 10:19 | Emergency (ER) | payer OTHER, SELFPAY ==
[2025-02-26 10:53] VITALS: BP 141/90; PULSE 77; RESP 16; TEMP 37; O2SAT 98; BMI 25.7
[2025-02-26 11:42] LABS: MANUAL DIFF FLAG NO
[2025-02-26 11:45] LABS: Basophils Absolute Auto 0.1 X10*3/uL (0.0-0.2); Basophils Percent Auto 1.6 % (0-2); Eosinophils Absolute Auto 0.2 X10*3/uL (0.0-0.4); Eosinophils Percent Auto 3.5 % (0-4); Hematocrit 40.8 % (37.0-47.0); Hemoglobin 13.3 g/dl (12.0-16.0); Imm Gran Abs Auto 0.02 X10*3/uL (0.00-0.03); Imm Gran Pct Auto 0.3 % (0.0-0.4); Lymphocytes Percent Auto 31.6 % (20-40); Mean Corpuscular HGB Conc 32.6 g/dl (31.0-35.0); Mean Corpuscular Hemoglobin 28.3 pg (27.0-33.0); Mean Corpuscular Volume 86.8 fL (80.0-98.0); Mean Platelet Volume 10.4 fL (9.4-12.3); Monocytes Absolute Auto 0.5 X10*3/uL (0.1-1.2); Monocytes Percent Auto 7.9 % (2-11); Neutrophils Absolute Auto 3.5 x10*3/uL (2.0-8.3); Neutrophils Percent Auto 55.1 % (45-73); Platelet Count 321 X10*3/uL (160-400); Red Cell Distribution Width 14.4 % (11.0-16.0); White Blood Count 6.3 X10*3/uL (4.8-10.8)
[2025-02-26 11:57] LABS: Alanine Aminotransferase 24 U/L (0-31); Albumin Level 4.7 g/dL (3.5-5.0); Alkaline Phosphatase 99 U/L (39-117); Anion Gap 12 (12-20); Aspartate Amino Transferase 26 U/L (5-31); Bilirubin Total 0.2 mg/dL (0.0-1.0); Blood Urea Nitrogen 15 mg/dL (9-16); C Reactive Protein 0.62 mg/dL (< or = 0.50); Calcium 9.8 mg/dL (8.4-10.2); Carbon Dioxide 29 mmol/L (22-29); Chloride 105 mmol/L (96-108); Creatinine Clr Calc Pharmacy 75.9; Estimated Glomerular Filt Rate > 60; Glucose Random 97 mg/dL (60-115); Potassium 4.1 mmol/L (3.3-5.1); Sodium 142 mmol/L (135-145); Total Protein 8.2 g/dL (6.5-8.0)
[2025-02-26 14:27] VITALS: BP 159/90; PULSE 73; RESP 18; TEMP 36.2; O2SAT 95
--- NOTE | 2025-02-26 14:27 | ED.GENADULT ---
HPI - General Adult General Chief complaint: Animal Bite Stated complaint: Bug bite? Swelling R arm Time Seen by Provider: 02/26/25 14:38 Source: patient and RN notes reviewed Mode of arrival: ambulatory Limitations: no limitations History of Present Illness ED Provider: Gracia Damon PA-C HPI narrative: This is a 64-year-old female, with a past medical history of HIV, who presents emergency department with complaints of right forearm swelling and pain started this morning. Patient is unsure what caused the swelling however states that she has had warmth, redness, and swelling to her right forearm. Denies history of similar symptoms. She is unsure if she was bit by a bug. She states that her apartment is having a bug problem. Denies any injury or trauma to her arm. Denies any known fevers or chills. No other complaints or concerns at this time. MD complaint: Right forearm swelling, redness Onset (ago): day(s) Radiation: extremity Severity: moderate Quality: aching Pain Consistency: constant Relieving factors: none Exacerbating factors: none Associated symptoms: denies other symptoms Treatments prior to arrival: none Related Data Home Medications ?Medication ?Instructions ?Recorded ?Confirmed bictegravir 50 mg-emtricitabine 1 tab PO DAILY 07/28/20 07/28/20 200 mg-tenofovir alafenam 25 mg tablet (Biktarvy) ergocalciferol (vitamin D2) 1,250 1,250 mcg PO QWEEK 07/28/20 07/28/20 mcg (50,000 unit) capsule (Vitamin D2) mirtazapine 15 mg tablet 15 mg PO BEDTIME 07/28/20 07/28/20 sertraline 100 mg tablet 150 mg PO DAILY 07/28/20 07/28/20 trazodone 50 mg tablet 50 mg PO BEDTIME 07/28/20 07/28/20 Previous Rx's ?Medication ?Instructions ?Recorded albuterol sulfate 90 mcg/actuation 2 inh inhalation Q6-8H PRN 07/29/20 aerosol inhaler shortness of breath or wheezing #18 grams omeprazole magnesium 20 mg 20 mg PO DAILY #30 tabs 07/29/20 tablet,delayed release (Prilosec OTC) prednisone 20 mg tablet 40 mg (2 x 20 mg) PO BID 5 days 07/29/20 #20 tabs naproxen 500 mg tablet 500 mg PO BID PRN pain #20 tabs 05/11/21 prednisone 20 mg tablet 40 mg (2 x 20 mg) PO DAILY #10 tabs 12/11/23 cephalexin 500 mg capsule 500 mg PO QID 7 days #28 caps 02/26/25 doxycycline hyclate 100 mg tablet 100 mg PO BID 7 days #14 tabs 02/26/25 Allergies Allergy/AdvReac Type Severity Reaction Status Date / Time No Known Allergies Allergy Mild NKA Verified 02/26/25 10:55 Review of Systems Review of Systems: Yes all other systems are reviewed and are negative Constitutional: Constitutional: Reports as per [facility] Past Medical History Medical History HIV (human immunodeficiency virus infection) Asthma Social History Social History Alcohol intake: never Substance Use Type: Crack/Cocaine and Marijuana Advance Directives: No Advance Directives Information Provided: Yes Do you have a plan to hurt others: No Plan service: No Current occupational status: unemployed Physical Exam ED Vital Signs: Vital Signs - 24 hr 02/26/25 10:53 02/26/25 14:27 02/26/25 15:03 Temperature 98.6 F 97.1 F 97.1 F Pulse Rate 77 73 73 Respiratory Rate 16 18 18 Blood Pressure 141/90 H 159/90 H 159/90 H Pulse Oximetry 98 95 95 Oxygen Delivery Method Room Air Room Air Room Air BMI result Body Mass Index 25.7 Const Other: General: Awake, alert, and oriented X3. No acute distress. HEENT: Normal inspection CVS: Normal heart rate and rhythm. Pulses normal. Respiratory: No respiratory distress Skin: Warm, dry, no rashes noted to exposed skin. Normal skin color. Normal skin turgor. Extremities: Right arm, dorsal aspect 8cm x 4cm area of erythema, and induration, tender to palpation, full ROM of the right elbow and right wrist. Neuro: Oriented X 3. No motor deficit. No sensory deficit. Medical Decision Making Medical Decision Making MDM Narrative: This is a 64-year-old who presents emergency department with complaints of right forearm since this a.m. On arrival, blood pressure elevated at 141/90. All other vital signs within normal limits, labs within normal limits. Patient with area of erythema, warmth, induration of the arm, patient also assessed by my attending physician, Dr. Weller. This appears to be a case of cellulitis, will treat with doxycycline and Keflex. Encouraged warm compresses and area outlined with skin marker. Given strict return precautions. She understands and agrees with plan. Patient stable for discharge. Differential Diagnosis Differential Diagnoses: The differential diagnosis associated with the presentation includes Cellulitis, cyst, abscess, insect bite Lab Data MDM Lab Attestation statement: I reviewed the patient's lab results. Patient has no leukocytosis, stable H&H, chemistry with no significant electrolyte derangement, CRP slightly elevated at 0.62. 02/26/25 11:34 02/26/25 11:34 Labs: Lab Results 02/26/25 Range/Units 11:34 WBC 6.3 (4.8-10.8) X10*3/uL RBC 4.70 (4.20-5.50) X10*6/uL Hgb 13.3 (12.0-16.0) g/dl Hct 40.8 (37.0-47.0) % MCV 86.8 (80.0-98.0) fL MCH 28.3 (27.0-33.0) pg MCHC 32.6 (31.0-35.0) g/dl RDW 14.4 (11.0-16.0) % Plt Count 321 D (160-400) X10*3/uL MPV 10.4 (9.4-12.3) fL Immature Gran % (Auto) 0.3 (0.0-0.4) % Neut % (Auto) 55.1 (45-73) % Lymph % (Auto) 31.6 (20-40) % [place] % (Auto) 7.9 (2-11) % Eos % (Auto) 3.5 (0-4) % Baso % (Auto) 1.6 (0-2) % Lymph # (Auto) 2.0 (1.2-4.9) X10*3/uL [place] # (Auto) 0.5 (0.1-1.2) X10*3/uL Eos # (Auto) 0.2 (0.0-0.4) X10*3/uL Baso # (Auto) 0.1 (0.0-0.2) X10*3/uL Abs Immat Gran (auto) 0.02 (0.00-0.03) X10*3/uL Absolute Neuts (auto) 3.5 (2.0-8.3) x10*3/uL Absolute Nucleated RBC 0.000 (0.0-0.012) X10*3/uL Nucleated RBC % (auto) 0.0 (0.0-0.2) /100WBC Sodium 142 (135-145) mmol/L Potassium 4.1 (3.3-5.1) mmol/L Chloride 105 (96-108) mmol/L Carbon Dioxide 29 (22-29) mmol/L Anion Gap 12 (12-20) BUN 15 (9-16) mg/dL Creatinine 0.70 (0.5-1.4) mg/dL Estim Creat Clear Calc 75.9 Estimated GFR > 60 Random Glucose 97 (60-115) mg/dL Calcium 9.8 (8.4-10.2) mg/dL Total Bilirubin 0.2 (0.0-1.0) mg/dL AST 26 (5-31) U/L ALT 24 (0-31) U/L Alkaline Phosphatase 99 (39-117) U/L C-Reactive Protein 0.62 H (< or = 0.50) mg/dL Total Protein 8.2 H (6.5-8.0) g/dL Albumin 4.7 (3.5-5.0) g/dL Discharge Plan Discharge Clinical Impression: Cellulitis Patient Disposition: Home, Self-Care Instructions: Cellulitis (ED), Warm Compress or Soak (ED) Additional Instructions: You were seen in the emergency department for right arm swelling. Please apply warm compress to the arm for 20 minutes at a time. Take prescribed antibiotics as directed. Finish the entire course even if your symptoms improve. Keep a close eye on the region, if redness spreads beyond the outlined line, please return for re-evaluation. If any new or worsening symptoms occur including but not limited to increased redness, swelling, pain, high fevers, please seek emergent care. Prescriptions: New doxycycline hyclate 100 mg tablet 100 mg PO BID 7 Days Qty: 14 0RF cephalexin 500 mg capsule 500 mg PO QID 7 Days Qty: 28 0RF No Action Biktarvy 50-200-25 mg Tablet 1 tab PO DAILY trazodone 50 mg Tablet 50 mg PO BEDTIME sertraline 100 mg Tablet 150 mg PO DAILY mirtazapine 15 mg Tablet 15 mg PO BEDTIME ergocalciferol (vitamin D2) [Vitamin D2] 1,250 mcg (50,000 unit) Capsule 1,250 mcg PO QWEEK prednisone 20 mg tablet 40 mg PO BID 5 Days Qty: 20 0RF albuterol sulfate 90 mcg/actuation HFA aerosol inhaler 2 inh inhalation Q6-8H PRN (Reason: shortness of breath or wheezing) Qty: 18 0RF omeprazole magnesium [Prilosec OTC] 20 mg tablet,delayed release (DR/EC) 20 mg PO DAILY Qty: 30 0RF naproxen 500 mg tablet 500 mg PO BID PRN (Reason: pain) Qty: 20 0RF prednisone 20 mg tablet 40 mg PO DAILY Qty: 10 0RF Interventions: ED Discharge Assessment Last Done: 02/26/25 15:03 Discharge Date/Time: 02/26/25 15:05 Print Language: Paraguayan
[2025-02-26 15:03] VITALS: BP 159/90; PULSE 73; RESP 18; TEMP 36.2; O2SAT 95
== END 2025-02-26 15:05 | disposition home or self-care (01) ==
PROVIDERS: Physician Assistant Medical; Emergency Provider Emergency Medicine Emergency Medical Services
DX: L03.113 Cellulitis of right upper limb (principal); M79.631 Pain in right forearm
CPT/HCPCS: 36415; 80053; 85025; 86140; 99282; 99283

== ENCOUNTER 2025-04-02 17:35 | Emergency (ER) | payer OTHER, SELFPAY ==
--- NOTE | ~2025-04-02 | XR_ITS ---
CLINICAL HISTORY: L pleuritic pain 2 view chest x-ray Comparison: 12/11/2023 Findings: Lungs are clear without acute infiltrates. No pneumothorax. Heart size normal. No acute bony abnormalities. Impression: No acute processes This document has been electronically signed by: Gideon Hung MD on 04/02/2025 19:54:06
[2025-04-02 17:52] VITALS: BP 125/75; BP 128/68; PULSE 86; PULSE 96; RESP 18; TEMP 36.8; O2SAT 96; O2SAT 97; BMI 24.8
--- NOTE | 2025-04-02 17:54 | ED.PSYCH ---
HPI - Psych General Chief Complaint: Psychiatric Symptoms Stated Complaint: anxiety Time Seen by Provider: 04/02/25 17:42 History of Present Illness ED Provider: Cipriano Medina MD HPI Narrative: [age] female with anxiety. She reports history of depression and anxiety worsened since recent uptake and cocaine use. Daily marijuana smoker. Denies tobacco use. No SI or HI currently. Not currently intoxicated. She however mainly reports that she is here for left-sided pleuritic pain in the lateral posterior axillary line region worse with coughing. Green phlegm production. Denies fever. She reports an asthma history with multiple inhaled treatments and an ?asthma doctor ?. She did not use her inhalers today. No exertional or substernal or classical anginal type pain. No known coronary disease. No history of DVT or PE Related Data Home Medications ?Medication ?Instructions ?Recorded ?Confirmed bictegravir 50 mg-emtricitabine 1 tab PO DAILY 07/28/20 07/28/20 200 mg-tenofovir alafenam 25 mg tablet (Biktarvy) ergocalciferol (vitamin D2) 1,250 1,250 mcg PO QWEEK 07/28/20 07/28/20 mcg (50,000 unit) capsule (Vitamin D2) mirtazapine 15 mg tablet 15 mg PO BEDTIME 07/28/20 07/28/20 sertraline 100 mg tablet 150 mg PO DAILY 07/28/20 07/28/20 trazodone 50 mg tablet 50 mg PO BEDTIME 07/28/20 07/28/20 Previous Rx's ?Medication ?Instructions ?Recorded albuterol sulfate 90 mcg/actuation 2 inh inhalation Q6-8H PRN 07/29/20 aerosol inhaler shortness of breath or wheezing #18 grams omeprazole magnesium 20 mg 20 mg PO DAILY #30 tabs 07/29/20 tablet,delayed release (Prilosec OTC) prednisone 20 mg tablet 40 mg (2 x 20 mg) PO BID 5 days 07/29/20 #20 tabs naproxen 500 mg tablet 500 mg PO BID PRN pain #20 tabs 05/11/21 prednisone 20 mg tablet 40 mg (2 x 20 mg) PO DAILY #10 tabs 12/11/23 cephalexin 500 mg capsule 500 mg PO QID 7 days #28 caps 02/26/25 doxycycline hyclate 100 mg tablet 100 mg PO BID 7 days #14 tabs 02/26/25 azithromycin 250 mg tablet 250 mg PO DAILY 4 days #4 tabs 04/02/25 prednisone 20 mg tablet 60 mg (3 x 20 mg) PO DAILY 4 days 04/02/25 #12 tabs Allergies Allergy/AdvReac Type Severity Reaction Status Date / Time No Known Allergies Allergy Mild NKA Verified 04/02/25 17:54 PMFSH Past Medical History Medical History HIV (human immunodeficiency virus infection) Asthma Social History Social History Alcohol intake: never Substance Use Type: Marijuana service: No Current occupational status: unemployed Physical Exam Exam: Exam: EXAM: Gen: Alert, awake, well appearing, well hydrated. Active wet sounding cough no respiratory distress Head: Atraumatic Eyes: Anicteric, Normal conjunctiva. ENT: Moist mucosa, no pallor. ? Neck: Supple. Skin: ?No observable rash or bruising on exposed or examined skin Respiratory: No distress respiratory rate about 20, slightly splinting occasion. Wet sounding cough. Coarse wheeze left greater than right posterior. Cardiovascular: Regular rate and rhythm. No murmurs or rub. Well perfused periphery, warm extremities. No edema. ? Abdominal: No focal tenderness. Soft, no objective distension. No palpable masses or obvious organomegaly. ?No guarding, no rebound tenderness or other peritoneal findings. : No flank tenderness. Neuro: Alert. Gross movement of all extremities intact. ? Psych: Calm. Cooperative. Sad, no SI or HI. Acknowledges anxiety and depression chronically. Acknowledges struggle with cocaine use. Daily marijuana use. MSK: No grossly visible deformity. Vital signs: See flowsheet Vital Signs: Vital Signs: Last Vital Signs Temp 98.5 F 04/02/25 20:52 Pulse 84 04/02/25 20:52 Resp 18 04/02/25 20:52 BP 103/62 04/02/25 20:52 Pulse Ox 97 04/02/25 20:52 O2 Del Method Room Air 04/02/25 20:52 BMI result Body Mass Index 24.8 Course Reevaluation(s) Reevaluation #1: Re-evaluated patient a 30 p.m. she is calm cooperative I had offered her evaluation by care team she declined she is not suicidal or homicidal feels comfortable spouse is at the bedside they feel safe and comfortable going home DANISHA signature Medications Administered Discontinued Medications Generic Name Dose Route Start Last Admin Trade Name Terrence PRN Reason Stop Dose Admin Albuterol/Ipratropium 3 ml 04/02/25 18:51 04/02/25 19:16 Albuterol/Iprat 2.5/0.5mg 3 Ml Ampul.Neb INHALE 04/02/25 18:52 3 ml ONCE ONE Administration Azithromycin 500 mg 04/02/25 20:22 04/02/25 20:46 Azithromycin 500 Mg Tablet PO 04/02/25 20:23 500 mg ONCE ONE Administration Ibuprofen 600 mg 04/02/25 19:07 04/02/25 19:23 Ibuprofen 600 Mg Tablet PO 04/02/25 19:08 600 mg ONCE ONE Administration Prednisone 60 mg 04/02/25 18:51 04/02/25 19:24 Prednisone 20 Mg Tablet PO 04/02/25 18:52 60 mg ONCE ONE Administration Medical Decision Making Medical Decision Making MDM Narrative: Medical Decision Makin-year-old female with left pleuritic pain cough phlegm production. Plan for x-ray to rule out pneumonia. No clear risks or history of DVT PE though this was considered. She is not tachycardic or hypoxic has no clinical signs of DVT I doubt this. Looks euvolemic. No anginal-type chest pain. Vital signs reassuring no sepsis criteria met. No indication for labs at this time. No clear COVID exposures. Sputum culture if able. I regarding anxiety/depression this is chronic no suicidal ideation Preliminary Favored Differential Diagnosis: Pneumonia, bronchitis, asthma exacerbation, COPD, pneumothorax, pleural effusion, chest wall strain, anxiety depression among additional considered etiologies Testing Interpreted Independently: ECG: Sinus rhythm no ischemic changes no RV strain. Rate 91 QTC 474 X-ray no infiltrate no effusion no pneumothorax Radiology or Lab testing Results Reviewed: Report reviewed. D-dimer negative, lab work non actionable Consults: Not Applicable Independent Historians/External Chart Reviews: Not Applicable Social Determinants of Health Impacting MDM/Planning: Not Applicable Lab Data 04/02/25 19:55 04/02/25 19:55 Labs: Lab Results 04/02/25 Range/Units 19:55 WBC 7.2 (4.8-10.8) X10*3/uL RBC 4.24 (4.20-5.50) X10*6/uL Hgb 12.2 (12.0-16.0) g/dl Hct 36.0 L (37.0-47.0) % MCV 84.9 (80.0-98.0) fL MCH 28.8 (27.0-33.0) pg MCHC 33.9 (31.0-35.0) g/dl RDW 13.9 (11.0-16.0) % Plt Count 255 (160-400) X10*3/uL MPV 10.4 (9.4-12.3) fL Immature Gran % (Auto) 0.3 (0.0-0.4) % Neut % (Auto) 59.9 (45-73) % Lymph % (Auto) 29.3 (20-40) % [place] % (Auto) 8.4 (2-11) % Eos % (Auto) 1.4 (0-4) % Baso % (Auto) 0.7 (0-2) % Lymph # (Auto) 2.1 (1.2-4.9) X10*3/uL [place] # (Auto) 0.6 (0.1-1.2) X10*3/uL Eos # (Auto) 0.1 (0.0-0.4) X10*3/uL Baso # (Auto) 0.1 (0.0-0.2) X10*3/uL Abs Immat Gran (auto) 0.02 (0.00-0.03) X10*3/uL Absolute Neuts (auto) 4.3 (2.0-8.3) x10*3/uL Absolute Nucleated RBC 0.000 (0.0-0.012) X10*3/uL Nucleated RBC % (auto) 0.0 (0.0-0.2) /100WBC D-Dimer High Sensitivty < 150 NG/ML Sodium 139 (135-145) mmol/L Potassium 3.5 (3.3-5.1) mmol/L Chloride 105 (96-108) mmol/L Carbon Dioxide 25 (22-29) mmol/L Anion Gap 13 (12-20) BUN 15 (9-16) mg/dL Creatinine 0.77 (0.5-1.4) mg/dL Estim Creat Clear Calc 67.9 Estimated GFR > 60 Random Glucose 137 H (60-115) mg/dL Calcium 8.9 D (8.4-10.2) mg/dL Discharge Plan Discharge Clinical Impression: Cough Patient Disposition: Home, Self-Care Instructions: Acute Bronchitis (ED) Additional Instructions: DISCHARGE DIAGNOSES: Cough likely exacerbation of underlying asthma or acute bronchitis no evidence of pneumonia HISTORY OF PRESENTATION: ?Cough with green phlegm production for about a week anxiety and depression but no suicidal thoughts EMERGENCY DEPARTMENT COURSE,TESTS, TREATMENTS: While in the ED today you were evaluated had some wheezing and were given albuterol ipratropium breathing treatments oral prednisone, had an x-ray of the chest without findings of pneumonia or other acute findings. We offered evaluation by the mental health/behavioral health team you declined this. DISCHARGE MEDICATIONS: ?[We have made no changes to your regular medication regimen] we have prescribed you the remainder of azithromycin 4 days, prednisone for 4 days FOLLOW-UP: ?Call your primary or general physician soon as possible to discuss your symptoms, your ED visit and to discuss follow up plans Call your primary doctor and lung doctor if you have a graduate teaching assistant INSTRUCTIONS ?& RETURN PRECAUTIONS: If any symptoms change first call your primary physician, if it is after-hours your primary doctors office should have a provider industrial rehabilitation consultant you can speak with. If the symptoms are severe or very concerning to you then call 911 or return to the ED. Cipriano Medina MD Emergency Physician [facility] Prescriptions: New azithromycin 250 mg tablet 250 mg PO DAILY 4 Days Qty: 4 0RF prednisone 20 mg tablet 60 mg PO DAILY 4 Days Qty: 12 0RF No Action Biktarvy 50-200-25 mg Tablet 1 tab PO DAILY trazodone 50 mg Tablet 50 mg PO BEDTIME sertraline 100 mg Tablet 150 mg PO DAILY mirtazapine 15 mg Tablet 15 mg PO BEDTIME ergocalciferol (vitamin D2) [Vitamin D2] 1,250 mcg (50,000 unit) Capsule 1,250 mcg PO QWEEK prednisone 20 mg tablet 40 mg PO BID 5 Days Qty: 20 0RF albuterol sulfate 90 mcg/actuation HFA aerosol inhaler 2 inh inhalation Q6-8H PRN (Reason: shortness of breath or wheezing) Qty: 18 0RF omeprazole magnesium [Prilosec OTC] 20 mg tablet,delayed release (DR/EC) 20 mg PO DAILY Qty: 30 0RF naproxen 500 mg tablet 500 mg PO BID PRN (Reason: pain) Qty: 20 0RF prednisone 20 mg tablet 40 mg PO DAILY Qty: 10 0RF doxycycline hyclate 100 mg tablet 100 mg PO BID 7 Days Qty: 14 0RF cephalexin 500 mg capsule 500 mg PO QID 7 Days Qty: 28 0RF Interventions: [place]-Suicide Risk Severity Scale Last Done: 04/02/25 19:17 Discharge Date/Time: 04/02/25 20:53 Print Language: Tajik
[2025-04-02] MEDS: Albuterol/Iprat 2.5/0.5MG 3 ML AMPUL.NEB INHALE (19:16)
[2025-04-02 19:17] VITALS: BP 123/78; PULSE 85; RESP 18; TEMP 37.1; O2SAT 96
[2025-04-02 19:19] VITALS: PULSE 90; RESP 18; O2SAT 96
--- NOTE | 2025-04-02 19:26 | ECG_ITS ---
Test Reason : CHEST PAIN Blood Pressure : */* mmHG Vent. Rate : 91 BPM Atrial Rate : 91 BPM P-R Int : 136 ms QRS Dur : 82 ms QT Int : 386 ms P-R-T Axes : 77 61 52 degrees QTcB Int : 474 ms Normal sinus rhythm Normal ECG When compared with ECG of 11-Aug-2024 16:01, No significant change was found Referred By: Cipriano Medina Electronically Signed By: REHAN ARMSTRONG
[2025-04-02 19:59] LABS: MANUAL DIFF FLAG NO
[2025-04-02 20:00] LABS: Hematocrit 36.0 % (37.0-47.0); Hemoglobin 12.2 g/dl (12.0-16.0); Imm Gran Abs Auto 0.02 X10*3/uL (0.00-0.03); Imm Gran Pct Auto 0.3 % (0.0-0.4); Lymphocytes Absolute Auto 2.1 X10*3/uL (1.2-4.9); Mean Corpuscular HGB Conc 33.9 g/dl (31.0-35.0); Mean Corpuscular Hemoglobin 28.8 pg (27.0-33.0); Mean Corpuscular Volume 84.9 fL (80.0-98.0); NRBC Abs Auto 0.000 X10*3/uL (0.0-0.012); NRBC Pct Auto 0.0 /100WBC (0.0-0.2); Platelet Count 255 X10*3/uL (160-400); Red Blood Count 4.24 X10*6/uL (4.20-5.50); White Blood Count 7.2 X10*3/uL (4.8-10.8)
[2025-04-02 20:13] LABS: Anion Gap 13 (12-20); Blood Urea Nitrogen 15 mg/dL (9-16); Calcium 8.9 mg/dL (8.4-10.2); Carbon Dioxide 25 mmol/L (22-29); Chloride 105 mmol/L (96-108); Creatinine Clr Calc Pharmacy 67.9; Estimated Glomerular Filt Rate > 60; Potassium 3.5 mmol/L (3.3-5.1); Sodium 139 mmol/L (135-145)
[2025-04-02 20:16] LABS: D Dimer High Sensitivity < 150 NG/ML
[2025-04-02 20:52] VITALS: BP 103/62; PULSE 84; RESP 18; TEMP 36.9; O2SAT 97
== END 2025-04-02 20:53 | disposition home or self-care (01) ==
PROVIDERS: Emergency Provider Emergency Medicine
DX: R05.9 Cough, unspecified (principal); B20 Human immunodeficiency virus [HIV] disease; J45.909 Unspecified asthma, uncomplicated; Z79.899 Other long term (current) drug therapy
CPT/HCPCS: 36415; 71046; 80048; 85025; 85379; 93005; 94640; 99284; 99285

== ENCOUNTER → 2025-04-02 18:51 | Outpatient (BNV) | payer OTHER, SELFPAY | PROVIDERS: Emergency Provider Emergency Medicine; Visit Provider Radiology Diagnostic Radiology | DX: R07.81 Pleurodynia (principal) | CPT/HCPCS: 71046 ==

== ENCOUNTER → 2025-04-02 19:26 | Outpatient (BNV) | payer OTHER, SELFPAY | PROVIDERS: Emergency Provider Emergency Medicine; Visit Provider Internal Medicine | DX: R07.9 Chest pain, unspecified (principal) | CPT/HCPCS: 93010 ==

== ENCOUNTER 2025-06-24 10:11 | Emergency (ER) | payer OTHER, SELFPAY ==
[2025-06-24 10:19] VITALS: BP 140/90; PULSE 80; O2SAT 98
[2025-06-24 10:26] VITALS: BP 176/91; PULSE 92; RESP 20; TEMP 36.7; O2SAT 98; BMI 25.7
--- NOTE | 2025-06-24 10:31 | ED_ITS ---
HPI - General Adult General Chief complaint: Wound/Laceration Stated complaint: LAC TO FINGER Time Seen by Provider: 06/24/25 10:30 Source: patient and EMS Mode of arrival: EMS Limitations: no limitations History of Present Illness ED Provider: Cristy Herrera PA-C HPI narrative: Patient is a 64 year old assigned female at with a history of HIV presenting to the emergency department today with a left middle finger laceration. Patient states that she was cooking when she accidentally cut herself with a knife. Patient states that she does not know when her last tetanus shot was. Patient denies any other complaints at this time. Related Data Home Medications ?Medication ?Instructions ?Recorded ?Confirmed bictegravir 50 mg-emtricitabine 1 tab PO DAILY 0 07/28/20 200 mg-tenofovir alafenam 25 mg tablet (Biktarvy) ergocalciferol (vitamin D2) 1,250 1,250 mcg PO QWEEK 1 09/27/19 07/28/20 mcg (50,000 unit) capsule (Vitamin D2) mirtazapine 15 mg tablet 15 mg PO BEDTIME 07/28/20 sertraline 100 mg tablet 150 mg PO DAILY 07/28/2009/04 trazodone 50 mg tablet 50 mg PO BEDTIME 07/28/20 Previous Rx's ?Medication ?Instructions ?Recorded albuterol sulfate 90 mcg/actuation 2 inh inhalation Q6 -8H PRN 07/29/20 aerosol inhaler shortness of breath or wheez ing #18 grams omeprazole magnesium 20 mg 20 mg PO DAILY #30 tabs tablet,delayed release (Prilosec OTC) prednisone 20 mg tablet 40 mg (2 x 20 mg) PO BID 5 d ays 07/29/20 #20 tabs naproxen 500 mg tablet 500 mg PO BID PRN pain #20 t abs 05/11/21 prednisone 20 mg tablet 40 mg (2 x 20 mg) PO DAILY # 10 tabs 12/11/23 cephalexin 500 mg capsule 500 mg PO QID 7 days #28 cap s 02/26/25 doxycycline hyclate 100 mg tablet 100 mg PO BID 7 days #14 tabs 02/26/25 azithromycin 250 mg tablet 250 mg PO DAILY 4 days #4 t abs 04/02/25 prednisone 20 mg tablet 60 mg (3 x 20 mg) PO DAILY 4 days 04/02/25 #12 tabs amoxicillin 875 mg-potassium 1 tab PO BID 5 days #10 t abs 06/24/25 clavulanate 125 mg tablet Allergies Allergy/AdvReac Type Severity Reaction Status Date / Time No Known Allergies Allergy Mild NKA Verified 06/24/25 10:27 Review of Systems 2 Constitutional: Constitutional: Reports as per HPI Eyes: Eyes: Reports as per HPI ENT: Reports as per HPI Cardiovascular: Cardiovascular: Reports as per HPI Respiratory: Respiratory: Reports as per HPI Gastrointestinal: Gastrointestinal: Reports as per HPI Genitourinary: Genitourinary: Reports as per HPI Musculoskeletal: Musculoskeletal: Reports as per HPI Integumentary/Breasts: Skin/Breast: Reports as per HPI Neurologic: Reports as per HPI Psychiatric: Psychiatric: Reports as per HPI Endocrine: Endocrine: Reports as per HPI Hematologic/Lymphatic: Hematologic/Lymphatic: Reports as per HPI Allergic/Immunologic: Allergic/Immunologic: Reports as per HPI [facility] Past Medical History Attestation statement: The following information was validated with the patient. Source: old records reviewed and nursing notes reviewed Medical History HIV (human immunodeficiency virus infection) Asthma Social History Social History Alcohol intake: never Substance Use Type: Marijuana Advance Directives: No Advance Directives Information Provided: No Do you have a plan to hurt others: No Plan Patient : No service: No Current occupational status: unemployed Physical Exam ED Vital Signs: Vital Signs - 24 hr 06/24/25 10:26 06/24/25 11:57 06/24/25 12:07 Temperature 98.1 F 0 F L Pulse Rate 92 91 91 Respiratory Rate 20 16 16 Blood Pressure 176/91 H 133/92 H 133/92 H Pulse Oximetry 98 96 96 Oxygen Delivery Method Room Air Room Air Room Air BMI result Body Mass Index 25.7 Const General: alert, awake and anxious Nutritional Appearance: well nourished Orientation/consciousness: patient oriented x3 HENMT Head: Yes normal to inspection and Yes atraumatic Ears: hearing grossly normal bilaterally and external ears normal General nose exam: Normal external nose present, no nasal discharge noted and no epistaxis Face and sinus: Yes normal facial exam, No abrasion and No laceration Mouth: no drooling and no muffled voice Eyes General: appearance normal, both eyes and all related structures Periorbital: periorbital findings normal Eyelids: Yes eyelids normal Conjunctivae: conjunctivae normal Pupils: Equal, round and reactive pupils present EOM: EOMs intact bilaterally Neck Neck: Yes normal visual inspection and Yes full ROM Resp Effort & Inspection: normal respiratory effort and able to speak in complete sentences Skin Trauma: laceration left anterior 3rd finger contaminated Neuro General: patient oriented x3 and moves all extremities Cranial nerves: Yes Equal, round and reactive pupils present Cognition (Neuro): normal cognition Extrem Other: General: Yes full ROM Psych Appearance: grossly normal Mental Status: mental status grossly normal Thought process: Normal thought process present Thought content: Normal thought content present Medications Administered Discontinued Medications Generic Name Dose Route Start Last Admin Trade Name Freq PRN Reason Stop Dose Admin Diphtheria/Tetanus/Acell Pertussis 0.5 ml 06/24/25 10:53 06/24/25 11:23 Diphth,Pertus(Acell),Tet Adult 0.5 Ml Syringe IM 06/24/25 10:54 0.5 ml .ONCE ONE Administration Ketorolac Tromethamine 15 mg 06/24/25 10:53 06/24/25 11:18 Ketorolac Tromethamine 15 Mg/Ml Vial IM 06/24/25 10:54 15 mg ONCE ONE Administration Procedures Laceration L 3rd digit: Side (If applicable): left Size (cm): 1.5 Description: flap Depth: simple, single layer Pre-repair: wound explored, irrigated extensively and deep structures intact Skin layer closed with: skin adhesive Size (cm): other (skin adhesive) Technique: skin adhesive Medical Decision Making Medical Decision Making MDM Narrative: Patient is a 64 year old assigned female at with a history of HIV presenting to the emergency department today with a left middle finger laceration. Patient's physical exam was as noted in the physical exam portion of this note. Patient's LUE ROM + PMS was present and intact. I explained my physical exam findings to the patient. I answered all questions asked by the patient. Patient's laceration was thoroughly cleaned and repaired with skin adhesive, without incident. Patient's PMS was intact prior to and after skin adhesive application. Patient was brought up to date on her tetanus status. I stressed the importance of the patient taking her medication as directed (either prescribed or as the over the counter packaging recommends). I stressed the importance of the patient following up with her primary care provider. I stressed the importance of the patient returning to the emergency department immediately if her symptoms were to worsen or if she were to develop any dizziness, shortness of breath, difficulty breathing, chest pain, blurry vision, loss of vision, nausea, vomiting, abdominal pain, fever, chills, back pain, or any other complaints. Patient verbalized agreement and understanding with this treatment plan and discharge. Differential Diagnosis Differential Diagnoses: The differential diagnosis associated with the presentation includes Finger laceration Admission/Observation Consideration of admission/observation: Escalation of care including admission/observation considered Patient would have been admitted to the hospital had her clinical presentation warranted hospital admission. Independent Historian Clinical information obtained from an independent historian. History obtained from or confirmed by: EMS (EMS provided additional history and confirmed the history provided by the patient. ) Prescription Management I considered prescription management with: Antibiotic (patient prescribed a prophylactic antibiotic given the mechanism of injury and history of HIV) Discharge Plan Discharge Clinical Impression: Laceration of finger Patient Disposition: Home, Self-Care Instructions: Finger Laceration (ED), Skin Adhesive Care (ED) Additional Instructions: Do NOT get the affected area wet for at LEAST 7 days. Perform daily wound checks and dressing changes. Take your antibiotic as prescribed. NO moje la giovanna afectada milad al menos 7 d?as. Revise la herida y cambie el ap?sito a diario. [place] el antibi?reed seg?n lo prescrito. IF you are prescribed home medications and/or you are taking over the counter medications at home- it is very important you continue to do so as prescribed / directed unless told otherwise. SI le recetan medicamentos y/o est? tomando medicamentos de venta gissel, es muy importante que contin?e haci?ndolo seg?n lo recetado/indicado a menos que le indiquen lo contrario. Follow up with your primary care provider. Return to the emergency department immediately if your symptoms worsen or if you develop any dizziness, shortness of breath, difficulty breathing, chest pain, blurry vision, loss of vision, nausea, vomiting, abdominal pain, fever, chills, back pain, or any other complaints. Caesar?seguimiento?con peck m?dico de atenci?n primaria. Acuda inmediatamente al servicio de urgencias si jimi s?ntomas empeoran o si presenta falta de aliento, dificultad para respirar, dolor tor?cico, mareos, aturdimiento, dolor de espalda, dolor abdominal, fiebre, escalofr?os o cualquier otro s?ntoma. Please see the information below about our Patient Portal. If you are not yet enrolled in the [facility] Patient Portal, you will receive an enrollment email invitation following your visit to any [facility] setting. You may also self-enroll in the Patient Portal by visiting our website: [email or web address] The following information is required to access the Patient Portal: - Your [facility] Medical Record Number - Your personal home email address (must match what is in your electronic medical record, Registration staff can assist with this) - Name - Date of Capabilities of the Patient Portal: - Message some providers - View upcoming appointments - Access your health summary, medical history, and visit history - View current conditions and allergies - View procedure and lab results - View your medications, including guidelines, side effects, and precautions - Complete pre-appointment questionnaires requested by your provider - Ready summary reports of your office visits and procedures To access the Patient Portal Mobile Mari, follow these directions: - Search [employer] in the Mari Store or [employer] Store - Download the Mari - Search for [facility] - Enter your login/password Portal del paciente Si usted no esta inscrito en el portal de pacientes de [facility], recibira hema invitacion de inscripcion despues de peck visita al [facility] o al [facility] via correo electronico. Tambien puede inscribirse voluntariamente en el portal de pacientes visitando nuestra pagina web: [email or web address] La siguiente informacion sera requerida para acceder al portal: - Peck susan de historia medica de [facility] - Peck direccion de correo electronico personal - Nombre - Fecha de nacimiento Capacidades: Las siguientes capacidades estan disponibles en el portal de pacientes: - Enviar mensajes a algunos doctores - Verificar proximas citas - Acceso a peck historial de ebony, registro medico e historial de visitas - Doc las condiciones actuales y alergias doc procedimientos y resultados del laboratorio - Doc jimi medicamentos, incluyendo las pautas - Efectos secundarios y precauciones - Completar o llenar formularios / cuestionarios de - Citas solicitadas por peck doctor - Leer los resumenes de reportes medicos de jimi visitas y procedimientos Yoshi acceder a la aplicacion movil: - [employer] en la Mari Store o [employer] Store - Descargue la aplicacion - [facility] - Ingrese peck nombre de usuario / Contrasena Prescriptions: New amoxicillin-pot clavulanate 875-125 mg tablet 1 tab PO BID 5 Days Qty: 10 0RF No Action Biktarvy 50-200-25 mg Tablet 1 tab PO DAILY trazodone 50 mg Tablet 50 mg PO BEDTIME sertraline 100 mg Tablet 150 mg PO DAILY mirtazapine 15 mg Tablet 15 mg PO BEDTIME ergocalciferol (vitamin D2) [Vitamin D2] 1,250 mcg (50,000 unit) Capsule 1,250 mcg PO QWEEK prednisone 20 mg tablet 40 mg PO BID 5 Days Qty: 20 0RF albuterol sulfate 90 mcg/actuation HFA aerosol inhaler 2 inh inhalation Q6-8H PRN (Reason: shortness of breath or wheezing) Qty: 18 0RF omeprazole magnesium [Prilosec OTC] 20 mg tablet,delayed release (DR/EC) 20 mg PO DAILY Qty: 30 0RF naproxen 500 mg tablet 500 mg PO BID PRN (Reason: pain) Qty: 20 0RF prednisone 20 mg tablet 40 mg PO DAILY Qty: 10 0RF doxycycline hyclate 100 mg tablet 100 mg PO BID 7 Days Qty: 14 0RF cephalexin 500 mg capsule 500 mg PO QID 7 Days Qty: 28 0RF azithromycin 250 mg tablet 250 mg PO DAILY 4 Days Qty: 4 0RF prednisone 20 mg tablet 60 mg PO DAILY 4 Days Qty: 12 0RF Referrals: Moi Don CNP [Primary Care Provider, Internal Medicine] Interventions: ED Discharge Assessment Last Done: 06/24/25 12:07 Discharge Date/Time: 06/24/25 12:11 Print Language: Greenlandic
[2025-06-24] MEDS: Diphth,Pertus(ACell),Tet Adult 0.5 ML SYRINGE IM (11:23)
[2025-06-24 11:57] VITALS: BP 133/92; PULSE 91; RESP 16; O2SAT 96
[2025-06-24 12:07] VITALS: BP 133/92; PULSE 91; RESP 16; TEMP -17.7; TEMP 0; O2SAT 96
== END 2025-06-24 12:11 | disposition home or self-care (01) ==
PROVIDERS: Emergency Provider Emergency Medicine; PCP Registered Nurse
DX: S61.213A Laceration without foreign body of left middle finger without damage to nail, initial encounter (principal); W26.0XXA Contact with knife, initial encounter; Y93.G3 Activity, cooking and baking; Y92.9 Unspecified place or not applicable; Y99.9 Unspecified external cause status; B20 Human immunodeficiency virus [HIV] disease
CPT/HCPCS: 12001; 90471; 90715; 96372; 99284; J1885

== ENCOUNTER 2025-08-06 04:54 | Emergency (ER) | payer OTHER, SELFPAY ==
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
[2025-08-06 04:59] VITALS: BP 129/83; PULSE 91; O2SAT 99
[2025-08-06 05:03] VITALS: BP 120/70; PULSE 89; RESP 18; TEMP 37.1; O2SAT 99; BMI 27.3
--- NOTE | 2025-08-06 05:13 | ED.EYEPROB ---
HPI - Eye Problem General Chief complaint: Eye Problems Stated complaint: eye swelling Time Seen by Provider: 08/06/25 04:56 Source: patient Mode of arrival: ambulatory Limitations: no limitations History of Present Illness ED Provider: Dr. Lexus Mckenzie HPI Narrative: Patient comes to the emergency room complaining of bilateral eye redness, itchiness, discharge. Patient states that she called her PCP 2 days ago and she was prescribed erythromycin ointment. Patient states that it is not helping, the eye infection is getting worse, now she has thick discharge from both eyes. Patient states that her boyfriend has a same condition who is currently at home. Denies fever chills, denies vision changes. Denies eye pain. Related Data Home Medications ?Medication ?Instructions ?Recorded ?Confirmed bictegravir 50 mg-emtricitabine 1 tab PO DAILY 07/28/20 07/28/20 200 mg-tenofovir alafenam 25 mg tablet (Biktarvy) ergocalciferol (vitamin D2) 1,250 1,250 mcg PO QWEEK 07/28/20 07/28/20 mcg (50,000 unit) capsule (Vitamin D2) mirtazapine 15 mg tablet 15 mg PO BEDTIME 07/28/20 07/28/20 sertraline 100 mg tablet 150 mg PO DAILY 07/28/20 07/28/20 trazodone 50 mg tablet 50 mg PO BEDTIME 07/28/20 07/28/20 Previous Rx's ?Medication ?Instructions ?Recorded albuterol sulfate 90 mcg/actuation 2 inh inhalation Q6-8H PRN 07/29/20 aerosol inhaler shortness of breath or wheezing #18 grams omeprazole magnesium 20 mg 20 mg PO DAILY #30 tabs 07/29/20 tablet,delayed release (Prilosec OTC) prednisone 20 mg tablet 40 mg (2 x 20 mg) PO BID 5 days 07/29/20 #20 tabs naproxen 500 mg tablet 500 mg PO BID PRN pain #20 tabs 05/11/21 prednisone 20 mg tablet 40 mg (2 x 20 mg) PO DAILY #10 tabs 12/11/23 cephalexin 500 mg capsule 500 mg PO QID 7 days #28 caps 02/26/25 doxycycline hyclate 100 mg tablet 100 mg PO BID 7 days #14 tabs 02/26/25 azithromycin 250 mg tablet 250 mg PO DAILY 4 days #4 tabs 04/02/25 prednisone 20 mg tablet 60 mg (3 x 20 mg) PO DAILY 4 days 04/02/25 #12 tabs amoxicillin 875 mg-potassium 1 tab PO BID 5 days #10 tabs 06/24/25 clavulanate 125 mg tablet polymyxin B sulfate 10,000 1 drp ophthalmic (eye) Q3H 7 days 08/06/25 unit-trimethoprim 1 mg/mL eye drops #10 mL Allergies Allergy/AdvReac Type Severity Reaction Status Date / Time No Known Allergies Allergy Mild NKA Verified 08/06/25 05:06 Review of Systems Review of Systems: Constitutional : No Weight loss, No Fever, No Chills, No Night Sweats, No Fatigue, No Malaise ENT/Mouth : No Hearing loss, No Ear Pain, No Nasal Congestion, No Sinus Pain, No Hoarseness, No sore throat, No Rhinorrhea, No Swallowing Difficulty Eyes: No Eye Pain, Complaining of eye swelling, redness, thick discharge, not responding well to erythromycin and actually getting worse Cardiovascular : No Chest Pain, No SOB, No Dyspnea on Exertion, No Orthopnea, No Edema, No Palpitations Respiratory : No Cough, No Sputum, No Wheezing, No Smoke Exposure, No Dyspnea Gastrointestinal : No Nausea, No Vomiting, No Diarrhea, No Constipation, No abdominal Pain, No Hematochezia, No Melena Genitourinary : no irregular bleeding, No Dysuria, No Urinary Frequency, No Hematuria, No Urinary Incontinence, No Urgency, No Flank Pain, No Urinary Flow Changes, No Hesitancy Musculoskeletal : No joint pain, No Myalgias, No Joint Swelling Skin : No Skin Lesions, No rash Neuro : No Weakness, No Numbness, No Paresthesias, No Loss of Consciousness, No Dizziness, No Headache Psych : No Anxiety/Panic, No Depression, No SI/HI/AH/VH, No Social Issues, Heme/Lymph: No Bruising, No Bleeding,No Lymphadenopathy Endocrine : No Polyuria, No Polydipsia, No Temperature Intolerance PMF Past Medical History Medical History HIV (human immunodeficiency virus infection) Asthma Social History Social History Alcohol intake: never Substance Use Type: Marijuana Do you have a plan to hurt others: No Plan service: No Current occupational status: unemployed Physical Exam Exam: Exam: Appearance: Alert. Oriented X3. No acute distress. Eyes: Pupils equal, round and reactive to light. Both eyes has significant erythema, conjunctival injection, purulence, periorbital erythema and edema, chemosis bilaterally in the medial and lateral aspects of the iris, for both eyes. the right eye: Negative Reymundo sign, negative corneal abrasion, eye pressure 20.5 mmHg. The left eye negative Reymundo sign, negative corneal abrasion, eye pressure 21.5 mmHg ENT: Pharynx normal. Neck: Normal inspection. Neck supple. No lymph nodes noted. No crepitus CVS: Normal heart rate and rhythm. Pulses normal. Normal S1 and S2 Respiratory: No respiratory distress. Breath sounds normal. No Wheezing. No rales Abdomen: Soft and nontender. No rigidity. No distention. Skin: Skin warm and dry. Normal skin color. Normal skin turgor. Extremities: No lower extremity edema. No Lacerations. No Rash Neuro: Oriented X 3. No motor deficit. No sensory deficit. Moving all extremities. No slurred speech. CN 2 through 12 grossly intact Psych: calm, cooperative, normal affect Vital Signs: Vital Signs: Last Vital Signs Temp 98.7 F 08/06/25 05:03 Pulse 89 08/06/25 05:03 Resp 18 08/06/25 05:03 BP 120/70 08/06/25 05:03 Pulse Ox 99 08/06/25 05:03 O2 Del Method Room Air 08/06/25 05:03 BMI result Body Mass Index 27.3 Medical Decision Making Medical Decision Making MDM Narrative: patient tried 2 days erythromycin ointment and her eye condition is getting worse. Patient states that her vision is well. Patient does have impressive conjunctivitis. Patient's Boyfriend has a same condition at home. empirically, patient was treated with IM ceftriaxone for gonococcal conjunctivitis. Patient does not wear contact lenses. Patient does not have pain with eye movement, does not seem to have preseptal or septal Discharge Plan Discharge Clinical Impression: Bacterial conjunctivitis Patient Disposition: Home, Self-Care Instructions: Conjunctivitis (ED) Additional Instructions: Please follow-up with your primary care physician tomorrow. If you have any worsening or new symptoms, please return to the emergency room or call 911 Prescriptions: New polymyxin B sulf-trimethoprim 10,000 unit- 1 mg/mL drops 1 drp ophthalmic (eye) Q3H 7 Days Qty: 10 0RF Rx Instructions: while awake; do not exceed 6 doses in 24 hours No Action Biktarvy 50-200-25 mg Tablet 1 tab PO DAILY trazodone 50 mg Tablet 50 mg PO BEDTIME sertraline 100 mg Tablet 150 mg PO DAILY mirtazapine 15 mg Tablet 15 mg PO BEDTIME ergocalciferol (vitamin D2) [Vitamin D2] 1,250 mcg (50,000 unit) Capsule 1,250 mcg PO QWEEK prednisone 20 mg tablet 40 mg PO BID 5 Days Qty: 20 0RF albuterol sulfate 90 mcg/actuation HFA aerosol inhaler 2 inh inhalation Q6-8H PRN (Reason: shortness of breath or wheezing) Qty: 18 0RF omeprazole magnesium [Prilosec OTC] 20 mg tablet,delayed release (DR/EC) 20 mg PO DAILY Qty: 30 0RF naproxen 500 mg tablet 500 mg PO BID PRN (Reason: pain) Qty: 20 0RF prednisone 20 mg tablet 40 mg PO DAILY Qty: 10 0RF doxycycline hyclate 100 mg tablet 100 mg PO BID 7 Days Qty: 14 0RF cephalexin 500 mg capsule 500 mg PO QID 7 Days Qty: 28 0RF azithromycin 250 mg tablet 250 mg PO DAILY 4 Days Qty: 4 0RF prednisone 20 mg tablet 60 mg PO DAILY 4 Days Qty: 12 0RF amoxicillin-pot clavulanate 875-125 mg tablet 1 tab PO BID 5 Days Qty: 10 0RF Print Language: Thai
[2025-08-06] MEDS: cefTRIAXone sodium 1 GM, Lidocaine HCl 1 % MPF 2.1 ML IM (06:08)
[2025-08-06] MEDS: Fluorescein Sodium STRIP 1 STRIP EYE-BOTH (06:10)
[2025-08-06 06:13] VITALS: BP 128/78; PULSE 86; RESP 18; TEMP 36.5; O2SAT 97
[2025-08-06 06:55] VITALS: BP 128/78; PULSE 86; RESP 18; TEMP 36.5; O2SAT 97
== END 2025-08-06 06:58 | disposition home or self-care (01) ==
PROVIDERS: Emergency Provider Emergency Medicine
DX: H10.33 Unspecified acute conjunctivitis, bilateral (principal); Z79.899 Other long term (current) drug therapy
CPT/HCPCS: 96372; 99284; J0696; J2003

== ENCOUNTER 2025-08-07 16:24 | Emergency (ER) | payer OTHER, SELFPAY ==
--- NOTE | ~2025-08-07 | CT_ITS ---
CLINICAL HISTORY: pain and swelling CT orbits with contrast Comparison: CT - CT ORBIT BI W IV CON - 08/07/25 19:40 EST Findings: No acute fractures. Orbital contents are normal. Fat stranding and soft tissue induration within the periorbital location present bilaterally. No fluid collection to indicate abscess. Visualized intracranial contents are within normal limits. Paranasal sinuses and mastoid air cells clear. No foreign bodies. IMPRESSION: Findings suggestive of periorbital cellulitis. This document has been electronically signed by: Nikolas Campos MD on 08/07/2025 20:53:25
[2025-08-07 16:27] VITALS: BP 105/79; PULSE 100; RESP 18; TEMP 36.6; O2SAT 98; BMI 24.8
--- NOTE | 2025-08-07 17:32 | ED.GENADULT ---
HPI - General Adult General Chief complaint: Eye Problems Stated complaint: Eye Issues Irritation Time Seen by Provider: 08/07/25 20:07 Source: patient and family Mode of arrival: ambulatory Limitations: no limitations History of Present Illness ED Provider: DR. Porter HPI narrative: this is a 65-year-old female came in for evaluation of persistent of bilateral eye infection patient was seen initially by her primary doctor week ago and was start on erythromycin ointment returned to the emergency department on 08/05 1st for worsening of her eye symptoms, patient was started on polymyxin eye drop that has been using since yesterday and most of the day today patient still do not feel improvement with more swelling in her both eyes, no fever, no chills, patient declined decreased vision, photophobia, pain with movement of the eye, foreign body in the eye. Related Data Home Medications ?Medication ?Instructions ?Recorded ?Confirmed bictegravir 50 mg-emtricitabine 1 tab PO DAILY 07/28/20 07/28/20 200 mg-tenofovir alafenam 25 mg tablet (Biktarvy) ergocalciferol (vitamin D2) 1,250 1,250 mcg PO QWEEK 07/28/20 07/28/20 mcg (50,000 unit) capsule (Vitamin D2) mirtazapine 15 mg tablet 15 mg PO BEDTIME 07/28/20 07/28/20 sertraline 100 mg tablet 150 mg PO DAILY 07/28/20 07/28/20 trazodone 50 mg tablet 50 mg PO BEDTIME 07/28/20 07/28/20 Previous Rx's ?Medication ?Instructions ?Recorded albuterol sulfate 90 mcg/actuation 2 inh inhalation Q6-8H PRN 07/29/20 aerosol inhaler shortness of breath or wheezing #18 grams omeprazole magnesium 20 mg 20 mg PO DAILY #30 tabs 07/29/20 tablet,delayed release (Prilosec OTC) prednisone 20 mg tablet 40 mg (2 x 20 mg) PO BID 5 days 07/29/20 #20 tabs naproxen 500 mg tablet 500 mg PO BID PRN pain #20 tabs 05/11/21 prednisone 20 mg tablet 40 mg (2 x 20 mg) PO DAILY #10 tabs 12/11/23 cephalexin 500 mg capsule 500 mg PO QID 7 days #28 caps 02/26/25 doxycycline hyclate 100 mg tablet 100 mg PO BID 7 days #14 tabs 02/26/25 azithromycin 250 mg tablet 250 mg PO DAILY 4 days #4 tabs 04/02/25 prednisone 20 mg tablet 60 mg (3 x 20 mg) PO DAILY 4 days 04/02/25 #12 tabs amoxicillin 875 mg-potassium 1 tab PO BID 5 days #10 tabs 06/24/25 clavulanate 125 mg tablet polymyxin B sulfate 10,000 1 drp ophthalmic (eye) Q3H 7 days 08/06/25 unit-trimethoprim 1 mg/mL eye drops #10 mL amoxicillin 875 mg-potassium 1 tab PO BID #14 tabs 08/07/25 clavulanate 125 mg tablet prednisone 10 mg tablet 10 mg PO BID #10 tabs 08/07/25 Allergies Allergy/AdvReac Type Severity Reaction Status Date / Time No Known Allergies Allergy Mild NKA Verified 08/07/25 16:31 Review of Systems Review of Systems: All other systems are reviewed and are negative Constitutional: Reports as per HPI and Reports no additional constitutional complaints Eyes: Reports as per HPI and Reports no additional eye complaints Reports system reviewed and no additional complaints, except as documented Cardiovascular: Reports as per HPI and Reports no additional cardiovascular complaints Respiratory: Reports as per HPI and Reports no additional respiratory complaints Gastrointestinal: Reports as per HPI and Reports no additional gastrointestinal complaints Genitourinary: Reports no additional female genitourinary complaints Musculoskeletal: Reports no additional musculoskeletal complaints Skin/Breast: Reports system reviewed and no additional complaints, except as docu Psychiatric: Reports no additional psychiatric complaints Endocrine: Reports no additional endocrine complaints Hematologic/Lymphatic: Reports no additional hematologic/lymphatic complaints Allergic/Immunologic: Reports no additional allergic/immunologic complaints Reports system reviewed and no additional complaints, except as documented and Reports Abnormal speech present [facility] Past Medical History Medical History HIV (human immunodeficiency virus infection) Asthma Social History Social History Alcohol intake: never Smoked in Last 30 Days: Yes Use of substances other than those prescribed or required for medical reasons: No Substance Use Type: Marijuana Advance Directives: No Advance Directives Information Provided: Yes Do you have a plan to hurt others: No Plan Patient : No service: No Current occupational status: unemployed Physical Exam ED Vital Signs: Vital Signs - 24 hr 08/07/25 16:27 08/07/25 20:30 Temperature 98 F Pulse Rate 100 84 Respiratory Rate 18 18 Blood Pressure 105/79 109/72 Pulse Oximetry 98 95 Oxygen Delivery Method Room Air Room Air BMI result Body Mass Index 24.8 Vital signs have been reviewed and appear to be correct. Blood pressure elevated. Heart rate normal. Respiratory rate normal. Temperature normal. Oxygen saturation normal. Appearance: Alert. Oriented X3. No acute distress. Head: Normal external exam. Normocephalic. Atraumatic. No Phipps signs noted. No raccoon eyes noted Eyes: VA 20/50 right, 20/70 left. Patient reports worsening of blurred vision with gazing to the right General: appearance normal, both eyes and all related structures Visual Melo: normal visual melo by confrontation Alignment and Position: alignment normal and position normal Periorbital: periorbital findings normal Eyelids: Swelling of both upper and lower eyelids bilaterally Conjunctivae: conjunctivae with erythema and swelling. Sclerae: sclerae injected Corneas: corneas normal no fluorescein uptake Pupils: Equal, round and reactive pupils present and Pupil accommodation reflex normal EOM: EOM abnormal (Limited abduction of right eye) and No Nystagmus present Direct Ophthalmoscopy: normal light reflex, no photophobia, no papilledema and fundi normal bilaterally ENT: TM's Normal. Pharynx normal. Uvula midline. Moist mucous membranes. No trismus noted. No drooling noted. No muffled voice noted. Neck: Normal inspection. Neck supple. FROM. No adenopathy. Thyroid Normal. No meningeal signs. No neck mass noted. CVS: Normal heart rate and rhythm. Heart sound normal. No murmurs noted. Pulses normal throughout. Respiratory: No respiratory distress. Painless inspiration. Breath sounds normal. No wheezes/rales/rhonchi noted. Chest nontender. No accessory muscle usage noted or decreased air movement noted. Abdomen: Soft and nontender. Bowel sounds normal in all 4 quadrants. No distention noted. No organomegaly noted. No visible injury noted. Back: No CVA tenderness. Full range of motion noted. Skin: Skin warm and dry. Normal skin color. Normal skin turgor. No rashes/lesions/lacerations noted. Extremities: No lower extremity edema. Extremities exhibit normal range of motion. Extremities nontender. Neuro: Oriented X 3. Cranial nerve exam: II-XII are grossly intact No motor deficit. No sensory deficit. Reflexes normal. Course Course Course Narrative: RME, this is a rapid medical exam performed by Ernesto Srinivasan please refer to primary provider for complete H&P- 65-year-old female presents for evaluation of bilateral eye redness, swelling, pain and drainage. She was seen here yesterday morning for cellulitis. She was transitioned from erythromycin ointment to polymyxin B with sulfamethoxazole ER trimethoprim. She reports her symptoms have worsened. Plan for basic labs. we will defer any potential advanced imaging to primary ER provi Reevaluation(s) Reevaluation #1: 65-year-old female with bilateral conjunctivitis possibly allergic conjunctivitis orbital CT showed periorbital cellulitis will add Augmentin to her current eyedrops polymyxin since patient felt better with no dose of Solu-Medrol will start the patient on 5 days' course of prednisone To help with the conjunctival swelling and relieves the symptoms. Patient was instructed to follow-up with her primary eye doctor in 2 days. Time: 22:18 Medications Administered Discontinued Medications Generic Name Dose Route Start Last Admin Trade Name Freq PRN Reason Stop Dose Admin Piperacillin Sod/Tazobactam 50 mls @ 100 mls/hr 08/07/25 20:23 08/07/25 21:21 Sod 3.375 gm/ Sodium Chloride IV 08/07/25 20:52 Infused ONCE ONE Infusion Vancomycin HCl 1,500 mg/ 500 mls @ 333.333 mls/hr 08/07/25 20:28 08/07/25 22:25 Sodium Chloride IV 08/07/25 21:57 Infused ONCE ONE Infusion Piperacillin Sod/Tazobactam 50 mls @ 100 mls/hr 08/07/25 20:30 08/07/25 20:42 Sod 3.375 gm/ Sodium Chloride IV 08/07/25 20:59 Not Given ONCE ONE Iohexol 100 ml 08/07/25 19:55 08/07/25 19:55 Iohexol 350 Mg/Ml 100 Ml Infus..Btl IV 08/07/25 19:56 85 ml ONCE ONE Administration Methylprednisolone Sodium Succinate 60 mg 08/07/25 20:23 08/07/25 20:39 Methylprednisolone Sod Succ 125 Mg/2 Ml Vial IVPUSH 08/07/25 20:24 60 mg ONCE ONE Administration Methylprednisolone Sodium Succinate 60 mg 08/07/25 20:30 08/07/25 20:42 Methylprednisolone Sod Succ 125 Mg/2 Ml Vial IVPUSH 08/07/25 20:31 Not Given ONCE ONE Medical Decision Making Differential Diagnosis Differential Diagnoses: The differential diagnosis associated with the presentation includes ( Periorbital cellulitis, orbital cellulitis, MRSA conjunctivitis, viral conjunctivitis, allergic conjunctivitis.) Admission/Observation Consideration of admission/observation: Escalation of care including admission/observation considered Lab Data [facility] Lab Attestation statement: I reviewed the patient's lab results. 08/07/25 17:49 08/07/25 17:49 Labs: Lab Results 08/07/25 Range/Units 17:49 WBC 5.7 (4.8-10.8) X10*3/uL RBC 4.85 (4.20-5.50) X10*6/uL Hgb 13.9 (12.0-16.0) g/dl Hct 43.1 (37.0-47.0) % MCV 88.9 (80.0-98.0) fL MCH 28.7 (27.0-33.0) pg MCHC 32.3 (31.0-35.0) g/dl RDW 13.6 (11.0-16.0) % Plt Count 266 (160-400) X10*3/uL MPV 10.7 (9.4-12.3) fL Immature Gran % (Auto) 0.2 (0.0-0.4) % Neut % (Auto) 55.4 (45-73) % Lymph % (Auto) 33.9 (20-40) % [place] % (Auto) 9.1 (2-11) % Eos % (Auto) 0.7 (0-4) % Baso % (Auto) 0.7 (0-2) % Lymph # (Auto) 1.9 (1.2-4.9) X10*3/uL [place] # (Auto) 0.5 (0.1-1.2) X10*3/uL Eos # (Auto) 0.0 (0.0-0.4) X10*3/uL Baso # (Auto) 0.0 (0.0-0.2) X10*3/uL Abs Immat Gran (auto) 0.01 (0.00-0.03) X10*3/uL Absolute Neuts (auto) 3.2 (2.0-8.3) x10*3/uL Absolute Nucleated RBC 0.000 (0.0-0.012) X10*3/uL Nucleated RBC % (auto) 0.0 (0.0-0.2) /100WBC Sodium 145 (135-145) mmol/L Potassium 3.8 (3.3-5.1) mmol/L Chloride 106 (96-108) mmol/L Carbon Dioxide 27 (22-29) mmol/L Anion Gap 15 (12-20) BUN 10 (9-16) mg/dL Creatinine 0.97 (0.5-1.4) mg/dL Estim Creat Clear Calc 53.2 Estimated GFR 58 Random Glucose 121 H (60-115) mg/dL Calcium 9.8 D (8.4-10.2) mg/dL Independent Interpretation I performed an independent interpretation of an: CT Scan ( Orbital CT:Findings suggestive of periorbital cellulitis.) Radiology Impression Discussion of test interpretation with radiology: I have reviewed the radiologist's reading. Discharge Plan Discharge Clinical Impression: Periorbital cellulitis, Conjunctivitis Patient Disposition: Home, Self-Care Instructions: Conjunctivitis (ED) Additional Instructions: call your eye doctor and make an appointment with him in 1-2 days. If your eye is getting worse please come back to the emergency department or seek immediate medical attention. Prescriptions: New amoxicillin-pot clavulanate 875-125 mg tablet 1 tab PO BID Qty: 14 0RF prednisone 10 mg tablet 10 mg PO BID Qty: 10 0RF No Action Biktarvy 50-200-25 mg Tablet 1 tab PO DAILY trazodone 50 mg Tablet 50 mg PO BEDTIME sertraline 100 mg Tablet 150 mg PO DAILY mirtazapine 15 mg Tablet 15 mg PO BEDTIME ergocalciferol (vitamin D2) [Vitamin D2] 1,250 mcg (50,000 unit) Capsule 1,250 mcg PO QWEEK prednisone 20 mg tablet 40 mg PO BID 5 Days Qty: 20 0RF albuterol sulfate 90 mcg/actuation HFA aerosol inhaler 2 inh inhalation Q6-8H PRN (Reason: shortness of breath or wheezing) Qty: 18 0RF omeprazole magnesium [Prilosec OTC] 20 mg tablet,delayed release (DR/EC) 20 mg PO DAILY Qty: 30 0RF naproxen 500 mg tablet 500 mg PO BID PRN (Reason: pain) Qty: 20 0RF prednisone 20 mg tablet 40 mg PO DAILY Qty: 10 0RF doxycycline hyclate 100 mg tablet 100 mg PO BID 7 Days Qty: 14 0RF cephalexin 500 mg capsule 500 mg PO QID 7 Days Qty: 28 0RF azithromycin 250 mg tablet 250 mg PO DAILY 4 Days Qty: 4 0RF prednisone 20 mg tablet 60 mg PO DAILY 4 Days Qty: 12 0RF amoxicillin-pot clavulanate 875-125 mg tablet 1 tab PO BID 5 Days Qty: 10 0RF polymyxin B sulf-trimethoprim 10,000 unit- 1 mg/mL drops 1 drp ophthalmic (eye) Q3H 7 Days Qty: 10 0RF Rx Instructions: while awake; do not exceed 6 doses in 24 hours Referrals: Sandi Diaz MD [Primary Care Provider, Pediatrics] Print Language: Other
[2025-08-07 18:13] LABS: MANUAL DIFF FLAG NO
[2025-08-07 18:14] LABS: Hematocrit 43.1 % (37.0-47.0); Hemoglobin 13.9 g/dl (12.0-16.0); Imm Gran Abs Auto 0.01 X10*3/uL (0.00-0.03); Imm Gran Pct Auto 0.2 % (0.0-0.4); Lymphocytes Absolute Auto 1.9 X10*3/uL (1.2-4.9); Mean Corpuscular HGB Conc 32.3 g/dl (31.0-35.0); Mean Corpuscular Hemoglobin 28.7 pg (27.0-33.0); Mean Corpuscular Volume 88.9 fL (80.0-98.0); NRBC Abs Auto 0.000 X10*3/uL (0.0-0.012); NRBC Pct Auto 0.0 /100WBC (0.0-0.2); Platelet Count 266 X10*3/uL (160-400); Red Blood Count 4.85 X10*6/uL (4.20-5.50); White Blood Count 5.7 X10*3/uL (4.8-10.8)
[2025-08-07 18:27] LABS: Anion Gap 15 (12-20); Blood Urea Nitrogen 10 mg/dL (9-16); Calcium 9.8 mg/dL (8.4-10.2); Carbon Dioxide 27 mmol/L (22-29); Chloride 106 mmol/L (96-108); Creatinine Clr Calc Pharmacy 53.2; Estimated Glomerular Filt Rate 58; Potassium 3.8 mmol/L (3.3-5.1); Sodium 145 mmol/L (135-145)
[2025-08-07] MEDS: iohexoL 350 MG/ML 100 ML INFUS..BTL IV (19:55)
[2025-08-07 20:30] VITALS: BP 109/72; PULSE 84; RESP 18; O2SAT 95
--- NOTE | 2025-08-07 20:33 | HO.NURTONUR ---
Pt was seen last week by pcp for bilateral pink eye. Pt was tx'd w/ erythomycin ointment, but came to ED on 08/05 for worsening sx's and was started on a different eye gtt. Pt returns today for more worsening sx's. Today tx'd w/ iv abx for bilat orbital cellulitis
--- NOTE | 2025-08-07 21:08 | MHC.EDTECH ---
visual acuity done 3 hours ago
[2025-08-07 22:36] VITALS: BP 109/72; PULSE 84; RESP 18; TEMP 37.1; O2SAT 95
== END 2025-08-07 22:36 | disposition home or self-care (01) ==
PROVIDERS: Physician Assistant; Emergency Provider Emergency Medicine; PCP Internal Medicine
DX: L03.213 Periorbital cellulitis (principal); H10.9 Unspecified conjunctivitis; R51.9 Headache, unspecified; H57.13 Ocular pain, bilateral; Z79.899 Other long term (current) drug therapy
CPT/HCPCS: 36415; 70481; 80048; 85025; 96365; 96367; 96375; 99284; 99285; J2543; J2919; J3374; Q9967

== ENCOUNTER → 2025-08-07 18:27 | Outpatient (BNV) | payer OTHER, SELFPAY | PROVIDERS: Emergency Provider Emergency Medicine; PCP Internal Medicine; Visit Provider Radiology Diagnostic Radiology | DX: H05.229 Edema of unspecified orbit (principal); H57.10 Ocular pain, unspecified eye | CPT/HCPCS: 70481 ==

== ENCOUNTER 2025-08-20 05:43 | Emergency (ER) | payer OTHER, SELFPAY ==
--- NOTE | 2025-08-20 | ECG_ITS ---
Test Reason : dyspnea Blood Pressure : */* mmHG Vent. Rate : 95 BPM Atrial Rate : 95 BPM P-R Int : 118 ms QRS Dur : 84 ms QT Int : 360 ms P-R-T Axes : 75 71 55 degrees QTcB Int : 452 ms Normal sinus rhythm Normal ECG When compared with ECG of 02-Apr-2025 19:37, No significant change was found Referred By: Generic ED Physician Electronically Signed By: REHAN ARMSTRONG
--- NOTE | ~2025-08-20 | XR_ITS ---
CLINICAL HISTORY: cough 2 view chest x-ray Comparison: CR - XR CHEST 2V - 04/02/25 19:15 EDT Findings: The lungs are clear. Normal size heart. No acute fracture. IMPRESSION: 1. No acute findings. This document has been electronically signed by: Antoni Javed MD on 08/20/2025 06:41:57
[2025-08-20 05:50] VITALS: BMI 22.6
[2025-08-20 05:52] VITALS: BP 155/78; PULSE 92; RESP 17; TEMP 36.9; O2SAT 96
--- NOTE | 2025-08-20 06:07 | ED.SOB ---
HPI - SOB/Dyspnea General Chief Complaint: Dyspnea Stated Complaint: SOB Time Seen by Provider: 08/20/25 06:03 Source: patient Mode of arrival: EMS Limitations: no limitations History of Present Illness HPI Narrative: This is a 65 years old female patient with a history of HIV, smoker, presented to the emergency department with a chief complaint of shortness of breath and cough since yesterday cough is productive yellow sputum. Denies any fever chills vomiting and diarrhea. MD elicited complaint: shortness of breath and cough Onset (ago): day(s) (1) Context: recent illness Timing: constant Severity: moderate Exacerbating factors: nothing Relieving factors: nothing Associated symptoms: denies other symptoms Treatment prior to arrival: none Related Data Home Medications ?Medication ?Instructions ?Recorded ?Confirmed bictegravir 50 mg-emtricitabine 1 tab PO DAILY 07/28/20 07/28/20 200 mg-tenofovir alafenam 25 mg tablet (Biktarvy) ergocalciferol (vitamin D2) 1,250 1,250 mcg PO QWEEK 07/28/20 07/28/20 mcg (50,000 unit) capsule (Vitamin D2) mirtazapine 15 mg tablet 15 mg PO BEDTIME 07/28/20 07/28/20 sertraline 100 mg tablet 150 mg PO DAILY 07/28/20 07/28/20 trazodone 50 mg tablet 50 mg PO BEDTIME 07/28/20 07/28/20 Previous Rx's ?Medication ?Instructions ?Recorded albuterol sulfate 90 mcg/actuation 2 inh inhalation Q6-8H PRN 07/29/20 aerosol inhaler shortness of breath or wheezing #18 grams omeprazole magnesium 20 mg 20 mg PO DAILY #30 tabs 07/29/20 tablet,delayed release (Prilosec OTC) prednisone 20 mg tablet 40 mg (2 x 20 mg) PO BID 5 days 07/29/20 #20 tabs naproxen 500 mg tablet 500 mg PO BID PRN pain #20 tabs 05/11/21 prednisone 20 mg tablet 40 mg (2 x 20 mg) PO DAILY #10 tabs 12/11/23 cephalexin 500 mg capsule 500 mg PO QID 7 days #28 caps 02/26/25 doxycycline hyclate 100 mg tablet 100 mg PO BID 7 days #14 tabs 02/26/25 azithromycin 250 mg tablet 250 mg PO DAILY 4 days #4 tabs 04/02/25 prednisone 20 mg tablet 60 mg (3 x 20 mg) PO DAILY 4 days 04/02/25 #12 tabs amoxicillin 875 mg-potassium 1 tab PO BID 5 days #10 tabs 06/24/25 clavulanate 125 mg tablet polymyxin B sulfate 10,000 1 drp ophthalmic (eye) Q3H 7 days 08/06/25 unit-trimethoprim 1 mg/mL eye drops #10 mL amoxicillin 875 mg-potassium 1 tab PO BID #14 tabs 08/07/25 clavulanate 125 mg tablet prednisone 10 mg tablet 10 mg PO BID #10 tabs 08/07/25 doxycycline monohydrate 100 mg 100 mg PO BID #14 caps 08/20/25 capsule prednisone 20 mg tablet 60 mg (3 x 20 mg) PO DAILY Asthma 08/20/25 #12 tabs Allergies Allergy/AdvReac Type Severity Reaction Status Date / Time No Known Allergies Allergy Mild NKA Verified 08/20/25 05:58 Review of Systems Constitutional: Constitutional: Reports no additional constitutional complaints Cardiovascular: Cardiovascular: Reports no additional cardiovascular complaints Respiratory: Respiratory: Reports cough PMFSH Past Medical History Attestation statement: The following information was validated with the patient. Medical History HIV (human immunodeficiency virus infection) Asthma Social History Social History Alcohol intake: never Use of substances other than those prescribed or required for medical reasons: Unknown Substance Use Type: Marijuana Advance Directives: No Advance Directives Information Provided: No Do you have a plan to hurt others: No Plan Patient : No service: No Current occupational status: unemployed Physical Exam Exam: Exam: No acute distress comfortable in the stretcher Vital Signs: Vital Signs: Last Vital Signs Temp 98 F 08/20/25 09:40 Pulse 96 08/20/25 09:40 Resp 16 08/20/25 09:40 BP 116/85 08/20/25 09:40 Pulse Ox 96 08/20/25 09:40 O2 Del Method Room Air 08/20/25 09:40 BMI result Body Mass Index 22.6 Const: General: cooperative and comfortable Nutritional Appearance: average body habitus Orientation/consciousness: patient oriented x3 Limitations: no limitations HEENT: Head: Yes normal to inspection Ears: hearing grossly normal bilaterally General nose exam: Normal external nose present Face and sinus: Yes normal facial exam Neck: Neck: Yes normal visual inspection and Yes full ROM Resp: Effort & Inspection: normal respiratory effort Auscultation: rhonchi Cardio: Jugular venous distension: no JVD Rate: regular rate Rhythm: regular rhythm GI: Inspection: Yes normal to inspection Palpation (GI): Soft to palpation, not firm and nontender Skin: General skin exam: no rashes or lesions noted, elasticity normal and turgor normal Neuro: General: patient oriented x3 Course Reevaluation(s) Reevaluation #1: On re-examination the patient is doing much better lungs are now clear, she is oxygenating well I think she can be discharged home Time: 09:04 Medications Administered Discontinued Medications Generic Name Dose Route Start Last Admin Trade Name Freq PRN Reason Stop Dose Admin Albuterol Sulfate 2.5 mg/ 5 mg 08/20/25 07:16 08/20/25 07:22 Albuterol Sulfate 2.5 mg INHALE 08/20/25 07:17 5 mg ONCE ONE Administration Prednisone 60 mg 08/20/25 09:09 08/20/25 09:29 Prednisone 20 Mg Tablet PO 08/20/25 09:10 60 mg ONCE ONE Administration Medical Decision Making Medical Decision Making [facility] Narrative: 65 years old HIV-positive presented with cough congestion shortness of breath we will obtain a chest x-ray, labs Differential Diagnosis Differential Diagnoses: The differential diagnosis associated with the presentation includes Pneumonia/bronchitis/asthma exacerbation/congestive heart failure Admission/Observation Consideration of admission/observation: Escalation of care including admission/observation considered Lab Data [facility] Lab Attestation statement: I reviewed the patient's lab results. 08/20/25 06:03 08/20/25 06:03 Labs: Lab Results 08/20/25 08/20/25 Range/Units 06:03 06:11 WBC 7.5 (4.8-10.8) X10*3/uL RBC 4.35 (4.20-5.50) X10*6/uL Hgb 12.2 (12.0-16.0) g/dl Hct 37.5 (37.0-47.0) % MCV 86.2 (80.0-98.0) fL MCH 28.0 (27.0-33.0) pg MCHC 32.5 (31.0-35.0) g/dl RDW 13.5 (11.0-16.0) % Plt Count 279 (160-400) X10*3/uL MPV 10.4 (9.4-12.3) fL Immature Gran % (Auto) 0.3 (0.0-0.4) % Neut % (Auto) 71.0 (45-73) % Lymph % (Auto) 16.2 L (20-40) % [place] % (Auto) 9.5 (2-11) % Eos % (Auto) 2.1 (0-4) % Baso % (Auto) 0.9 (0-2) % Lymph # (Auto) 1.2 (1.2-4.9) X10*3/uL [place] # (Auto) 0.7 (0.1-1.2) X10*3/uL Eos # (Auto) 0.2 (0.0-0.4) X10*3/uL Baso # (Auto) 0.1 (0.0-0.2) X10*3/uL Abs Immat Gran (auto) 0.02 (0.00-0.03) X10*3/uL Absolute Neuts (auto) 5.3 (2.0-8.3) x10*3/uL Absolute Nucleated RBC 0.000 (0.0-0.012) X10*3/uL Nucleated RBC % (auto) 0.0 (0.0-0.2) /100WBC Sodium 141 (135-145) mmol/L Potassium 3.5 (3.3-5.1) mmol/L Chloride 106 (96-108) mmol/L Carbon Dioxide 25 (22-29) mmol/L Anion Gap 14 (12-20) BUN 12 (9-16) mg/dL Creatinine 0.69 (0.5-1.4) mg/dL Estim Creat Clear Calc 78.1 Estimated GFR > 60 Random Glucose 112 (60-115) mg/dL Calcium 8.9 D (8.4-10.2) mg/dL Total Bilirubin 0.5 (0.0-1.0) mg/dL AST 22 (5-31) U/L ALT 16 (0-31) U/L Alkaline Phosphatase 84 (39-117) U/L Troponin I High Sens < 2.7 (<3.5-17.0) ng/L Total Protein 7.4 (6.5-8.0) g/dL Albumin 4.3 (3.5-5.0) g/dL Influenza Type A (PCR) NEGATIVE (Negative) Influenza Type B (PCR) NEGATIVE (Negative) RSV RNA Qual (PCR) NEGATIVE (Negative) SARS-CoV-2 RNA (RT-PCR) NEGATIVE (Negative) Independent Interpretation I performed an independent interpretation of an: EKG and Plain X-Ray (NAD) Interpretation: EKG was reviewed interpreted by me as sinus rhythm rate 95 normal axis normal intervals essentially normal EKG Radiology Impression Discussion of test interpretation with radiology: I have reviewed the radiologist's reading. Discharge Plan Discharge Clinical Impression: Bronchitis Patient Disposition: Home, Self-Care Instructions: Acute Bronchitis (ED) Additional Instructions: Follow-up with your primary care physician we sent a prescription for antibiotic and prednisone to your pharmacy Prescriptions: New doxycycline monohydrate 100 mg capsule 100 mg PO BID Qty: 14 0RF prednisone 20 mg tablet 60 mg PO DAILY Qty: 12 0RF No Action Biktarvy 50-200-25 mg Tablet 1 tab PO DAILY trazodone 50 mg Tablet 50 mg PO BEDTIME sertraline 100 mg Tablet 150 mg PO DAILY mirtazapine 15 mg Tablet 15 mg PO BEDTIME ergocalciferol (vitamin D2) [Vitamin D2] 1,250 mcg (50,000 unit) Capsule 1,250 mcg PO QWEEK prednisone 20 mg tablet 40 mg PO BID 5 Days Qty: 20 0RF albuterol sulfate 90 mcg/actuation HFA aerosol inhaler 2 inh inhalation Q6-8H PRN (Reason: shortness of breath or wheezing) Qty: 18 0RF omeprazole magnesium [Prilosec OTC] 20 mg tablet,delayed release (DR/EC) 20 mg PO DAILY Qty: 30 0RF naproxen 500 mg tablet 500 mg PO BID PRN (Reason: pain) Qty: 20 0RF prednisone 20 mg tablet 40 mg PO DAILY Qty: 10 0RF doxycycline hyclate 100 mg tablet 100 mg PO BID 7 Days Qty: 14 0RF cephalexin 500 mg capsule 500 mg PO QID 7 Days Qty: 28 0RF azithromycin 250 mg tablet 250 mg PO DAILY 4 Days Qty: 4 0RF prednisone 20 mg tablet 60 mg PO DAILY 4 Days Qty: 12 0RF amoxicillin-pot clavulanate 875-125 mg tablet 1 tab PO BID 5 Days Qty: 10 0RF polymyxin B sulf-trimethoprim 10,000 unit- 1 mg/mL drops 1 drp ophthalmic (eye) Q3H 7 Days Qty: 10 0RF Rx Instructions: while awake; do not exceed 6 doses in 24 hours amoxicillin-pot clavulanate 875-125 mg tablet 1 tab PO BID Qty: 14 0RF prednisone 10 mg tablet 10 mg PO BID Qty: 10 0RF Interventions: ED Discharge Assessment Last Done: 08/20/25 09:40 Discharge Date/Time: 08/20/25 09:41 Print Language: Other
[2025-08-20 06:12] VITALS: BP 155/78; PULSE 92; RESP 17; TEMP 36.9; O2SAT 96
[2025-08-20 06:16] LABS: MANUAL DIFF FLAG NO
[2025-08-20 06:19] LABS: Hematocrit 37.5 % (37.0-47.0); Hemoglobin 12.2 g/dl (12.0-16.0); Imm Gran Abs Auto 0.02 X10*3/uL (0.00-0.03); Imm Gran Pct Auto 0.3 % (0.0-0.4); Lymphocytes Absolute Auto 1.2 X10*3/uL (1.2-4.9); Mean Corpuscular HGB Conc 32.5 g/dl (31.0-35.0); Mean Corpuscular Hemoglobin 28.0 pg (27.0-33.0); Mean Corpuscular Volume 86.2 fL (80.0-98.0); NRBC Abs Auto 0.000 X10*3/uL (0.0-0.012); NRBC Pct Auto 0.0 /100WBC (0.0-0.2); Platelet Count 279 X10*3/uL (160-400); Red Blood Count 4.35 X10*6/uL (4.20-5.50); White Blood Count 7.5 X10*3/uL (4.8-10.8)
[2025-08-20 06:29] LABS: Alanine Aminotransferase 16 U/L (0-31); Albumin Level 4.3 g/dL (3.5-5.0); Alkaline Phosphatase 84 U/L (39-117); Anion Gap 14 (12-20); Aspartate Amino Transferase 22 U/L (5-31); Blood Urea Nitrogen 12 mg/dL (9-16); Calcium 8.9 mg/dL (8.4-10.2); Carbon Dioxide 25 mmol/L (22-29); Chloride 106 mmol/L (96-108); Creatinine Clr Calc Pharmacy 78.1; Estimated Glomerular Filt Rate > 60; Potassium 3.5 mmol/L (3.3-5.1); Sodium 141 mmol/L (135-145); Total Protein 7.4 g/dL (6.5-8.0)
[2025-08-20 06:37] LABS: Troponin-I High Sensitivity < 2.7 ng/L (<3.5-17.0)
[2025-08-20 06:53] LABS: Resp Syncy Virus RNA Qual PCR NEGATIVE (Negative); SARS COV2 PCR INHOUSE NEGATIVE (Negative)
[2025-08-20] MEDS: Albuterol Sulfate 2.5 MG, Albuterol Sulfate (0.083%) 2.5 MG 5 MG INHALE (07:22)
[2025-08-20 07:23] VITALS: PULSE 96; RESP 16; O2SAT 98
[2025-08-20 09:40] VITALS: BP 116/85; PULSE 96; RESP 16; TEMP 36.6; O2SAT 96
== END 2025-08-20 09:41 | disposition home or self-care (01) ==
PROVIDERS: Emergency Provider Emergency Medicine; PCP Internal Medicine
DX: J40 Bronchitis, not specified as acute or chronic (principal); R06.02 Shortness of breath; R05.9 Cough, unspecified; Z79.899 Other long term (current) drug therapy; Z03.818 Encounter for observation for suspected exposure to other biological agents ruled out
CPT/HCPCS: 36415; 71046; 80053; 84484; 85025; 87637; 93005; 94640; 99285

== ENCOUNTER → 2025-08-20 06:03 | Outpatient (BNV) | payer OTHER, SELFPAY | PROVIDERS: Emergency Provider Emergency Medicine; PCP Internal Medicine; Visit Provider Internal Medicine | DX: R06.00 Dyspnea, unspecified (principal) | CPT/HCPCS: 93010 ==

== ENCOUNTER → 2025-08-20 06:06 | Outpatient (BNV) | payer OTHER, SELFPAY | PROVIDERS: Emergency Provider Emergency Medicine; PCP Internal Medicine; Visit Provider Radiology Diagnostic Radiology | DX: R05.9 Cough, unspecified (principal) | CPT/HCPCS: 71046 ==